=== PATIENT | female | born 1935 | race Caucasian/White ===

== ENCOUNTER 2017-01-17 13:28 | Inpatient (IN) | payer MEDICARE, BC ==
[2017-01-17] VITALS (9 sets, daily range): BP systolic 95–146; BP diastolic 51–79; PULSE 80–104; RESP 18–24; TEMP 97.7; O2SAT 95–99
[~2017-01-17] VITALS: Ht 162.6 cm; Wt 50.0 kg
[~2017-01-17 13:28] MED LIST: CARV6.252 PO; CHOL100025 CHEW; CHOL4POW3 PO; CLON.2T TD; HYDR-3516 PO; HYDR12.57 PO; LISI-515 PO; MAGN64 PO; QUET1TAB7 PO; VENL75XR PO; VITA500C9 CHEW
[2017-01-17] MEDS ORDERED: SODIUM CHLOR 0.9% 1000 ML INJ 100 ML IV ONE (13:38)
[2017-01-17] MEDS ORDERED: SODIUM CHLOR 0.9% 1000 ML INJ 1,000 ML IV ONE ×2 (13:38)
--- NOTE | 2017-01-17 14:27 | PD ---
HPI Chief Complaint: Altered Mental Status Time Seen by Provider: 13:38 Travel History International Travel<30 days: No Contact w/Intl Traveler<30days: No Traveled to known affect area: No History of Present Illness HPI 81-year-old female came to the emergency room brought by EMS from her [facility]. Patient was last seen normal by family members was last Wednesday. As per the EMS staff has been progressively getting more and more confused and deteriorating and today called EMS. When they arrived and checked her blood pressure was 70 systolic. Patient fell last September and had a cervical spine fracture. She also fell couple days ago. But since that fall she did not want to go to the emergency room. They noticed that she was not moving her left upper extremity and was weak in her left lower extremity. Her speech seemed garbled and difficult for me to understand. She did tell me her name. She has a [place] collar on her neck. Patient is a DNR. EMS brought a 12-lead EKG by them which showed left bundle branch block. PFSH Past Medical History Narrative Medical List of her past medical, surgical, social and family history was reviewed from the nursing note. Hx Anticoagulant Therapy: No Alzheimer's Disease: Yes (PER DAUGHTER; PT DENIES) Bipolar Disorder: Yes Anxiety: Yes Cardiovascular Problems: Yes Cerebrovascular Accident: Yes (TIA) Coronary Artery Disease: Yes Diabetes: No Diminished Hearing: No Genitourinary: No Hypertension: Yes Musculoskeletal: No Neurologic: Yes Psychiatric: Yes Reproductive: No Respiratory: No Menopausal: Yes : 3 Para: 3 Past Surgical History Abdominal Surgery: Yes ( FEEDING TUBE IN 10/2014, OUT 11/2014) Appendectomy: Yes Hysterectomy: Yes Social History Alcohol Use: No Tobacco Use: No Substance Use: No Allergies-Medications (Allergen,Severity, Reaction): Coded Allergies: No Known Allergies (Unverified , 01/17/17) Comments No known drug allergies. Reported Meds & Prescriptions Reported Meds & Active Scripts Active Effexor XR 24 HR (Venlafaxine HCl) 75 Mg Cap 75 Mg PO DAILY 30 Days Quetiapine (Quetiapine Fumarate) 25 Mg Tab 25 Mg PO BID 30 Days Hydrocodone-Acetaminophen 5-325 mg Tab 1 Tab PO Q4H PRN [id number] 168 HR Patch (Clonidine) 0.2 Mg/24 Hr Patch 1 Patch TD Q7D 30 Days Reported Lorazepam 0.5 Mg Tab 0.5 Mg PO BID PRN Cholestyramine 4 Gm/Dose Powd 4 Gm PO TID 1 level scoopful of powder contains 4 grams of cholestyramine. Vitamin D3 (Cholecalciferol) 1,000 Unit Chew 1,500 Units CHEW WEEKLY Carvedilol 6.25 Mg Tab 6.25 Mg PO BID Hydrochlorothiazide 12.5 Mg Cap 12.5 Mg PO DAILY Lisinopril 20 Mg Tab 10 Mg PO DAILY Vitamin C (Ascorbic Acid) 500 Mg Chew 500 Mg CHEW DAILY Narrative Medication List of her home medications reviewed from the nursing note. Review of Systems Except as stated in HPI: all other systems reviewed are Neg Physical Exam Narrative GENERAL: Elderly, frail, moderate distress, [place] collar, altered mental status, failure to thrive SKIN: Focused skin assessment warm/dry. HEAD: Atraumatic. Normocephalic. EYES: Pupils equal and round. No scleral icterus. No injection or drainage. ENT: No nasal bleeding or discharge. Mucous membranes pink and moist. NECK: Trachea midline. No JVD. CARDIOVASCULAR: Regular rate and rhythm. No murmur appreciated. RESPIRATORY: No accessory muscle use. Clear to auscultation. Breath sounds equal bilaterally. GASTROINTESTINAL: Abdomen soft, non-tender, nondistended. Hepatic and splenic margins not palpable. MUSCULOSKELETAL: No obvious deformities. No clubbing. No cyanosis. No edema. NEUROLOGICAL: Confused, garbled speech. No obvious cranial nerve deficits. 0 out of 5 motor strength of the left upper extremity, 2 out of 5 motor strength of the left lower extremity PSYCHIATRIC: Appropriate mood and affect; insight and judgment normal. Data Data Last Documented VS Vital Signs Date Time Temp Pulse Resp B/P Pulse Ox O2 Delivery O2 Flow Rate FiO2 01/17/17 15:30 86 22 115/61 96 Nasal Cannula 2 Orders Complete Blood Count With Diff (01/17/17 13:38) Comprehensive Metabolic Panel (01/17/17 13:38) Lactic Acid Sepsis Protocol (01/17/17 13:38) Urinalysis - C+S If Indicated (01/17/17 13:38) Blood Culture (01/17/17 13:38) Chest, Single Ap (01/17/17 13:38) Blood Glucose (01/17/17 13:38) Ecg Monitoring (01/17/17 13:38) Iv Access Insert/Monitor (01/17/17 13:38) Oximetry (01/17/17 13:38) Oxygen Administration (01/17/17 13:38) Sodium Chlor 0.9% 1000 Ml Inj (Ns 1000 M (01/17/17 13:38) Sodium Chlor 0.9% 1000 Ml Inj (Ns 1000 M (01/17/17 13:38) Sodium Chlor 0.9% 1000 Ml Inj (Ns 1000 M (01/17/17 13:38) Urinary Catheter Insert/Apply (01/17/17 13:38) Ct Brain W/O Iv Contrast(Rout) (01/17/17 ) Ct Cerv Spine W/O Contrast (01/17/17 ) Potassium Chlor 20 Meq Premix (Kcl 20 Me (01/17/17 15:30) Urine Culture (01/17/17 14:30) Ceftriaxone Inj (Rocephin Inj) (01/17/17 16:00) Admit Order (Ed Use Only) (01/17/17 15:48) Labs Laboratory Tests Test 01/17/17 01/17/17 01/17/17 14:05 14:07 14:30 Sodium Level 125 MEQ/L Potassium Level 2.7 MEQ/L Chloride Level 85 MEQ/L Carbon Dioxide Level 25.1 MEQ/L Anion Gap 15 MEQ/L Blood Urea Nitrogen 54 MG/DL Creatinine 2.52 MG/DL Estimat Glomerular Filtration 18 ML/MIN Rate Random Glucose 93 MG/DL Calcium Level 8.3 MG/DL Total Bilirubin 0.7 MG/DL Aspartate Amino Transf 53 U/L (AST/SGOT) Alanine Aminotransferase 33 U/L (ALT/SGPT) Alkaline Phosphatase 94 U/L Total Protein 6.5 GM/DL Albumin 3.2 GM/DL White Blood Count 14.9 TH/MM3 Red Blood Count 3.72 MIL/MM3 Hemoglobin 11.6 GM/DL Hematocrit 32.6 % Mean Corpuscular Volume 87.8 FL Mean Corpuscular Hemoglobin 31.3 PG Mean Corpuscular Hemoglobin 35.7 % Concent Red Cell Distribution Width 13.3 % Platelet Count 173 TH/MM3 Mean Platelet Volume 9.5 FL Neutrophils (%) (Auto) 83.5 % Lymphocytes (%) (Auto) 8.0 % Monocytes (%) (Auto) 8.3 % Eosinophils (%) (Auto) 0.1 % Basophils (%) (Auto) 0.1 % Neutrophils # (Auto) 12.5 TH/MM3 Lymphocytes # (Auto) 1.2 TH/MM3 Monocytes # (Auto) 1.2 TH/MM3 Eosinophils # (Auto) 0.0 TH/MM3 Basophils # (Auto) 0.0 TH/MM3 CBC Comment DIFF FINAL Differential Comment Lactic Acid Level 1.1 mmol/L Urine Color YELLOW Urine Turbidity HAZY Urine pH 5.5 Urine Specific [place] 1.013 Urine Protein 30 mg/dL Urine Glucose (UA) NEG mg/dL Urine Ketones NEG mg/dL Urine Occult Blood TRACE Urine Nitrite NEG Urine Bilirubin NEG Urine Urobilinogen LESS THAN 2.0 MG/DL Urine Leukocyte Esterase SMALL Urine RBC 4 /hpf Urine WBC 4 /hpf Urine WBC Clumps RARE Urine Squamous Epithelial <1 /hpf Cells Urine Bacteria RARE /hpf Urine Hyaline Casts 35 /lpf Urine Granular Casts 1 /lpf Urine White Blood Cell Casts 5 /lpf Urine Mucus FEW /lpf Microscopic Urinalysis Comment CATH-CULTURE IND MDM Medical Decision Making Medical Screen Exam Complete: Yes Emergency Medical Condition: Yes Medical Record Reviewed: Yes Interpretation(s) Twelve-lead EKG was reviewed by me. Atrial fibrillation, left bundle branch block, left axis deviation. Heart rate of 96 bpm. Differential Diagnosis CVA, intracranial bleed, intracranial tumor Narrative Course 2:26 PM awaiting for the blood test results to come back. I was told by the nurse that they had to get a manual blood pressure and it was 50 systolic. Patient is getting IV fluid bolus. Waiting for CT scans to be done and resulted. I've asked the nurse to call her veterans contact representative from the family/ friend so that they can be made aware of her poor condition. Currently her condition is very guarded. I looked at her old EKG from September 2016 and the left bundle branch block was then as well. 4:16 p.m. blood test results are back and chemistry is significantly abnormal for dehydration. She is getting replacement for potassium and second liter IV fluid bolus. Patient is currently asleep and vital signs have improved. Her daughter was in the room and I discussed her condition with the daughter. I answered all her questions to the best of my ability. Daughter has given more elaborate history and says that she is slowly declining over the past 4-5 days. She went from walking with a walker to be walking and then bedridden as of yesterday. Today she found her almost unconscious when she called 911. Daughter was told about the plan and I let her know about patient's guarded condition. Patient has been admitted to the hospitalist. I discussed about her DNR status with the daughter and she said that her mother strongly expressed her wishes to be DNR when she was with it and she would like to respect that. Critical Care Narrative Aggregate critical care time was 60 minutes. Time to perform other separately billable procedures was not included in the critical care time. My time did not include minutes spent treating any other patients simultaneously or on activities that did not directly contribute to the patient's treatment. The services I provided to this patient were to treat and/or prevent clinically significant deterioration that could result in: Sepsis, dehydration, altered mental status I provided critical care services requiring my management, as noted below: Chart data review, documentation time, medication orders and management, vital sign assessments/reviewing monitor data, ordering and reviewing lab tests, ordering and interpreting/reviewing x-rays and diagnostic studies, care of the patient and discussion of the patient with the admitting physicians. Procedures EKG Prior to Arrival: Yes Diagnosis Primary Impression: Sepsis Qualified Code: A41.9 - Sepsis, due to unspecified organism Additional Impressions: Dehydration Altered mental status Qualified Code: R40.1 - Stupor Renal insufficiency Hypokalemia Admitting Information Admitting Physician Requests: Admit Angel Martin MD Jan 17, 2017 14:27 Angel Martin MD Jan 17, 2017 14:27
--- NOTE | 2017-01-17 14:31 | RADRPT ---
EXAM DATE/TIME: 01/17/2017 13:40 [facility] COMPARISON: No previous studies available for comparison. INDICATIONS : Shortness of breath. MEDICAL HISTORY : None. SURGICAL HISTORY : None. ENCOUNTER: Initial ACUITY: 1 day PAIN SCORE: 3/10 LOCATION: Bilateral chest FINDINGS: A single view of the chest demonstrates the lungs to be symmetrically hyperinflated without evidence of mass, infiltrate or effusion. The cardiomediastinal contours are unremarkable. Osseous structure s are intact. CONCLUSION: Emphysematous changes of the lungs. No acute abnormality seen. Mayda Russell MD on January 17, 2017 at 14:29 Board Certified Radiologist. This report was verified electronically.
[2017-01-17 14:39] LABS: AUTOMATED NEUTROPHIL # 12.5 TH/MM3 (1.8-7.7); BASOPHIL % 0.1 % (0.0-2.0); EOSINOPHIL % 0.1 % (0.0-4.0); HEMATOCRIT 32.6 % (35.0-46.0); HEMO FLAGS DIFF FINAL; LYMPHOCYTE # 1.2 TH/MM3 (1.0-4.8); MEAN CELL VOLUME 87.8 FL (80.0-100.0); MEAN CORPUSCULAR HEMOGLOBIN 31.3 PG (27.0-34.0); MEAN CORPUSCULAR HGB CONC 35.7 % (32.0-36.0); MONO % 8.3 % (0.0-8.0); NEUT % 83.5 % (16.0-70.0); PLATELET COUNT 173 TH/MM3 (150-450); RED BLOOD COUNT 3.72 MIL/MM3 (4.00-5.30); RED CELL DISTRIBUTION WIDTH 13.3 % (11.6-17.2); WHITE BLOOD COUNT 14.9 TH/MM3 (4.0-11.0)
[2017-01-17] MEDS ORDERED: LORA-373 PO (14:50)
[2017-01-17 15:19] LABS: ALKALINE PHOSPHATASE 94 U/L (45-117); ALT (GPT) 33 U/L (10-53); ANION GAP 15 MEQ/L (5-15); AST (GOT) 53 U/L (15-37); BICARBONATE 25.1 MEQ/L (21.0-32.0); BLOOD UREA NITROGEN 54 MG/DL (7-18); CHLORIDE 85 MEQ/L (98-107); GLOMERULAR FILTRATION RATE 18 ML/MIN (>89); SODIUM (NA) 125 MEQ/L (136-145); TOTAL BILIRUBIN ADULT 0.7 MG/DL (0.2-1.0)
[2017-01-17 15:21] LABS: POTASSIUM 2.7 MEQ/L (3.5-5.1)
[2017-01-17] MEDS ORDERED: POTASSIUM CHLOR 20 MEQ PREMIX 100 ML IV ONE (15:30)
--- NOTE | 2017-01-17 15:31 | RADRPT ---
EXAM DATE/TIME: 01/17/2017 14:48 [facility] COMPARISON: CT BRAIN W/O CONTRAST, September 18, 2016, 22:53. INDICATIONS : Trauma; fall. RADIATION DOSE: 33.51 CTDIvol (mGy) MEDICAL HISTORY : Cardiovascular disease. Alzheimer's. SURGICAL HISTORY : None. ENCOUNTER: Initial ACUITY: 1 day PAIN SCALE: 8/10 LOCATION: cranial TECHNIQUE: Multiple contiguous axial images were obtained of the head. Using automated exposure control and adj ustment of the mA and/or kV according to patient size, radiation dose was kept as low as reasonably a chievable to obtain optimal diagnostic quality images. FINDINGS: CEREBRUM: The ventricles are normal for age. No evidence of midline shift, mass lesion, hemorrhage or acute in farction. No extra-axial fluid collections are seen. POSTERIOR FOSSA: The cerebellum and brainstem are intact. The 4th ventricle is midline. The cerebellopontine angle i s unremarkable. EXTRACRANIAL: The visualized portion of the orbits is intact. SKULL: The calvaria is intact. No evidence of skull fracture. CONCLUSION: 1. No acute findings. Chronic white matter ischemic changes. Paul Thompson MD on January 17, 2017 at 15:29 Board Certified Radiologist. This report was verified electronically.
--- NOTE | 2017-01-17 15:36 | RADRPT ---
EXAM DATE/TIME: 01/17/2017 14:48 [facility] COMPARISON: No previous studies available for comparison. INDICATIONS : Trauma; fall, history of cervical fracture. RADIATION DOSE: 10.73 CTDIvol (mGy) MEDICAL HISTORY : Cardiovascular disease. Stroke Alzheimers. SURGICAL HISTORY : None. ENCOUNTER: Initial ACUITY: 1 day PAIN SCALE: 6/10 LOCATION: Bilateral neck TECHNIQUE: Volumetric scanning of the cervical spine was performed. Multiplanar reconstructions in the sagittal, coronal and oblique axial planes were performed. Using automated exposure control and adjustment o f the mA and/or kV according to patient size, radiation dose was kept as low as reasonably achievable to obtain optimal diagnostic quality images. FINDINGS: Again seen is a chronic fracture through the dens with mild displacement. There is no change in appea lynnette on CT exam since September 2016. No canal stenosis. There is moderate degenerative disc disease and facet arthropathy remainder the cervical spine. There is minimal degenerative anterolisthesis of C4 on C5 which is stable. No significant prevertebral soft tissue swelling. CONCLUSION: 1. Chronic C2 fracture through dens without change in alignment or appearance compared with September 2016. No canal stenosis. Stable minimal degenerative anterolisthesis of C4 on C5. Stable facet arthro cory. Paul Thompson MD on January 17, 2017 at 15:30 Board Certified Radiologist. This report was verified electronically.
[2017-01-17 15:41] LABS: BACTERIA, URINE RARE /hpf; BLOOD, URINE TRACE (NEG); GLUCOSE,URINE NEG (NEG); GRANULAR CAST, URINE 1 /lpf; HYALINE CAST, URINE 35 /lpf (RARE); KETONE, URINE NEG (NEG); MUCUS URINE FEW /lpf (OCC); NITRITE,URINE NEG (NEG); PH, URINE 5.5 (5.0-8.5); SQUAMOUS EPITHELIAL CELL URINE <1 /hpf (0-5); URINE COLOR YELLOW (YELLW/STRAW); WHITE BLOOD CELL CAST, URINE 5 /lpf
[2017-01-17 15:42] LABS: COMMENT (UR) CATH-CULTURE IND; CULTURE IF INDICATED CATH CULTURE IND
[2017-01-17] MEDS ORDERED: cefTRIAXone INJ 1,000 MG in SODIUM CHLORIDE 0.9% INJ 100 ML IV ONE (16:00)
[2017-01-17] MEDS ORDERED: ONDANSETRON HCL 4 MG/2 ML VIAL IVP PRN (16:45)
[2017-01-17] MEDS ORDERED: SODIUM CHLORIDE 0.9% FLUSH 10 ML FLUSH IV FLUSH PRN (16:45)
[2017-01-17] MEDS ORDERED: ACETAMINOPHEN 325 MG TAB PO PRN (16:45)
[2017-01-17] MEDS ORDERED: cefTRIAXone INJ 1,000 MG in SODIUM CHLORIDE 0.9% INJ 100 ML IV SCH (17:00)
--- NOTE | 2017-01-17 17:11 | HHI.HP ---
HPI Service [facility] Hospitalists Primary Care Physician Non-Staff Admission Diagnosis sepsis, UTI Diagnoses: Chief Complaint: AMS Travel History International Travel<30 Days: No Contact w/Intl Traveler <30 Da: No Traveled to Known Affected Are: No Sepsis Criteria SIRS Criteria (2 or more): Heart rate over 90, WBC > 18101, < 4000 or > 10% bands Sepsis Criteria (SIRS+source): Infect source susp/known History of Present Illness This is an 81-year-old female with past medical history as stated below who presented to [facility] brought in by EMS services. The patient is lethargic and unable to provide history at this time. The patient's daughter is at bedside. She states that the patient started the week approximately 3 days ago. Today when she went to see her she was very weak and sleepy. That is when she decided to call EMS services. The patient has been seen in emergency department, she with IV fluids. As per ED physician report the patient was profoundly hypotensive with systolic blood pressure in the 60s. IV fluid was administered with improvement of blood pressure. There are no reports of fevers or chills, occasional cough, as per the patient's daughter, the patient had been complaining of palpitations, nausea and dry heaving. There are no reports of diarrhea. Review of Systems As per history of present illness, other systems reviewed by me and negative Past Family Social History Past Medical History 1. Hypertension. 2. Scoliosis and anxiety. 3. Chronic back pain. 4. Chronic atrial fibrillation 5. Anorexia nervosa Past Surgical History 1. Cataract surgery of the right eye. 2. Feeding tube into thousand 14. 3. Tonsillectomy. 4. Hysterectomy. 5. Cervical fracture status post fall 6. Encephalopathy. 7. UTI. 8. Depression. Reported Medications Effexor XR 24 HR (Venlafaxine HCl) 75 Mg Cap 75 Mg PO DAILY 30 Days Quetiapine (Quetiapine Fumarate) 25 Mg Tab 25 Mg PO BID 30 Days Hydrocodone-Acetaminophen 5-325 mg Tab 1 Tab PO Q4H PRN [id number] 168 HR Patch (Clonidine) 0.2 Mg/24 Hr Patch 1 Patch TD Q7D 30 Days Lorazepam 0.5 Mg Tab 0.5 Mg PO BID PRN Cholestyramine 4 Gm/Dose Powd 4 Gm PO TID 1 level scoopful of powder contains 4 grams of cholestyramine. Vitamin D3 (Cholecalciferol) 1,000 Unit Chew 1,500 Units CHEW WEEKLY Carvedilol 6.25 Mg Tab 6.25 Mg PO BID Hydrochlorothiazide 12.5 Mg Cap 12.5 Mg PO DAILY Lisinopril 20 Mg Tab 10 Mg PO DAILY Vitamin C (Ascorbic Acid) 500 Mg Chew 500 Mg CHEW DAILY Allergies: Coded Allergies: No Known Allergies (Unverified , 09/17/16) Active Ordered Medications Current Medications Medications (Trade) Dose Ordered Sig/Ally Route Start Time Stop Time Status Last Admin (KCl 20 Meq Premix Inj) 100 ml @ 50 mls/hr ONCE ONCE IV 01/17/17 15:30 01/17/17 17:29 Family History Patient's mother and brother of heart disease. Social History The patient is a former smoker, she quit smoking several years ago. Denies alcohol intake. The patient lives in an assisted living facility. Physical Exam Vital Signs Vital Signs Date Time Temp Pulse Resp B/P Pulse Ox O2 Delivery O2 Flow Rate FiO2 01/17/17 14:34 83 22 95/51 96 Nasal Cannula 2 01/17/17 14:25 104 24 146/63 96 Nasal Cannula 2 01/17/17 14:09 96 24 142/73 95 Room Air 01/17/17 13:45 100 Physical Exam GENERAL: This is a well-nourished, well-developed patient, in no apparent distress. SKIN: No rashes, ecchymoses or lesions. Cool and dry. There is a skin tear in the left lower extremity covered by dressing which is C/D/I HEAD: Atraumatic. Normocephalic. No temporal or scalp tenderness. EYES: Pupils equal round and reactive. Extraocular motions intact. No scleral icterus. No injection or drainage. ENT: Nose without bleeding, purulent drainage or septal hematoma. Throat without erythema, tonsillar hypertrophy or exudate. Uvula midline. Airway patent. [place] collar in place. NECK: Trachea midline. No JVD or lymphadenopathy. Supple, nontender, no meningeal signs. CARDIOVASCULAR: Irregularly irregular rhythm without murmurs, gallops, or rubs. RESPIRATORY: Clear to auscultation. Breath sounds equal bilaterally. No wheezes , rales, or rhonchi. GASTROINTESTINAL: Abdomen soft, non-tender, nondistended. No hepato-splenomegaly , or palpable masses. No guarding. MUSCULOSKELETAL: Extremities without clubbing, cyanosis, or edema. No joint tenderness, effusion, or edema noted. No calf tenderness. Negative Homans sign bilaterally. NEUROLOGICAL: Awake and alert. Cranial nerves II through XII intact. Motor and sensory grossly within normal limits. Five out of 5 muscle strength in all muscle groups. Normal speech. Laboratory Laboratory Tests Test 01/17/17 01/17/17 01/17/17 14:05 14:07 14:30 White Blood Count 14.9 Red Blood Count 3.72 Hemoglobin 11.6 Hematocrit 32.6 Mean Corpuscular Volume 87.8 Mean Corpuscular Hemoglobin 31.3 Mean Corpuscular Hemoglobin 35.7 Concent Red Cell Distribution Width 13.3 Platelet Count 173 Mean Platelet Volume 9.5 Neutrophils (%) (Auto) 83.5 Lymphocytes (%) (Auto) 8.0 Monocytes (%) (Auto) 8.3 Eosinophils (%) (Auto) 0.1 Basophils (%) (Auto) 0.1 Neutrophils # (Auto) 12.5 Lymphocytes # (Auto) 1.2 Monocytes # (Auto) 1.2 Eosinophils # (Auto) 0.0 Basophils # (Auto) 0.0 CBC Comment DIFF FINAL Differential Comment Sodium Level 125 Potassium Level 2.7 Chloride Level 85 Carbon Dioxide Level 25.1 Anion Gap 15 Blood Urea Nitrogen 54 Creatinine 2.52 Estimat Glomerular Filtration 18 Rate Random Glucose 93 Calcium Level 8.3 Total Bilirubin 0.7 Aspartate Amino Transf 53 (AST/SGOT) Alanine Aminotransferase 33 (ALT/SGPT) Alkaline Phosphatase 94 Total Protein 6.5 Albumin 3.2 Lactic Acid Level 1.1 Urine Color YELLOW Urine Turbidity HAZY Urine pH 5.5 Urine Specific [place] 1.013 Urine Protein 30 Urine Glucose (UA) NEG Urine Ketones NEG Urine Occult Blood TRACE Urine Nitrite NEG Urine Bilirubin NEG Urine Urobilinogen LESS THAN 2.0 Urine Leukocyte Esterase SMALL Urine RBC 4 Urine WBC 4 Urine WBC Clumps RARE Urine Squamous Epithelial <1 Cells Urine Bacteria RARE Urine Hyaline Casts 35 Urine Granular Casts 1 Urine White Blood Cell Casts 5 Urine Mucus FEW Microscopic Urinalysis Comment CATH-CULTURE IND Date/Time Procedure Status Source Growth 01/17/17 14:30 Urine Culture Received Urine Catheterized Urine Pending 01/17/17 14:05 Aerobic Blood Culture Received Blood Peripheral Pending 01/17/17 14:05 Anaerobic Blood Culture Received Blood Peripheral Pending Result Diagram: 01/17/17 1405 01/17/17 1405 Imaging Last Impressions Chest X-Ray 01/17/17 1338 Signed Impressions: Service Date/Time: Tuesday, January 17, 2017 13:40 - CONCLUSION: Emphysematous changes of the lungs. No acute abnormality seen. Mayda Russell MD Head CT 01/17/17 0000 Signed Impressions: Service Date/Time: Tuesday, January 17, 2017 14:48 - CONCLUSION: 1. No acute findings. Chronic white matter ischemic changes. Paul Thompson MD Cervical Spine CT 01/17/17 0000 Signed Impressions: Service Date/Time: Tuesday, January 17, 2017 14:48 - CONCLUSION: 1. Chronic C2 fracture through dens without change in alignment or appearance compared with September 2016. No canal stenosis. Stable minimal degenerative anterolisthesis of C4 on C5. Stable facet arthropathy. Paul Thompson MD All images reviewed by me. EKG reviewed by me shows atrial fibrillation at a ventricular rate of [address] changes suggestive of active ischemia. Septic Shock Reassessment Heart: Irregular Lungs: Clear Skin: Warm Peripheral Pulses: Weak Right Radial Weak Left Radial Weak Right Dorsalis Pedis Weak Left Dorsalis Pedis Capillary Refill: <2 seconds Assessment and Plan Problem List: (1) Sepsis ICD Code: A41.9 Status: Acute Plan: Sepsis likely secondary to urinary tract infection. Chest x-ray does not show any infiltrates. UA positive, follow-up urine and blood cultures obtained in the emergency department. Present on admission with heart rate in the 100s, leukocytosis, hypotension. Admit to general medical floor with telemetry, continue IV fluids, continue to monitor vital signs (2) Encephalopathy ICD Code: G93.40 Status: Acute Plan: Due to sepsis likely due to UTI. Patient lethargic when she left the hospital. Waking up up in the event of this interview. (3) UTI (urinary tract infection) ICD Code: N39.0 Status: Acute Plan: Follow-up urine cultures. Continue IV Rocephin started in the emergency department. Continue Arriola catheter. (4) HTN (hypertension) ICD Code: I10 Status: Acute Plan: Hold home antihypertensive medications due to hypotension. (5) Hyponatremia ICD Code: E87.1 Status: Acute Plan: Likely hypovolemic hyponatremia from dehydration and decreased oral intake. Monitor BMP every 6 hours. Sodium should not be based more than 10 points in the first 24 hours. (6) Hypokalemia ICD Code: E87.6 Status: Acute Plan: Likely secondary to poor oral intake. Replace IV and continue to monitor. (7) C2 cervical fracture ICD Code: S12.100A Status: Acute (8) MELVIN (acute kidney injury) ICD Code: N17.9 Status: Acute Plan: Likely due to prerenal azotemia and due to hemodynamic instability. Continue to monitor BUN/creatinine, strict input and output, avoid nephrotoxic medications. Give IV fluids. (9) Hypotension ICD Code: I95.9 Status: Acute Plan: Secondary to sepsis, secondary to urinary tract infection. Status post 3 L of IV normal saline in the emergency department. Blood pressure improving. Continue to monitor vital signs. Assessment and Plan GI prophylaxis: PPI. DVT prophylaxis: SCDs, Lovenox subcutaneous. Physician Certification 2 Midnight Certification Type: Admission for Inpatient Services Order for Inpatient Services The services are ordered in accordance with Medicare regulations or non- Medicare payer requirements, as applicable. In the case of services not specified as inpatient-only, they are appropriately provided as inpatient services in accordance with the 2-midnight benchmark. Estimated LOS (days): 2 days is the estimated time the patient will need to remain in the hospital, assuming treatment plan goals are met and no additional complications. Post-Hospital Plan: SNF Problem Qualifiers (1) Sepsis: Qualified Code: A41.9 - Sepsis, due to unspecified organism (2) UTI (urinary tract infection): Qualified Code: N30.00 - Acute cystitis without hematuria Rory Ortega MD Jan 17, 2017 17:11
[2017-01-17] MEDS ORDERED: POTASSIUM CHLOR 20 MEQ PREMIX 100 ML IV SCH (18:00)
[2017-01-17] MEDS: SODIUM CHLORIDE 0.9% FLUSH 10 ML FLUSH IV FLUSH SCH (20:46)
[2017-01-17] MEDS: SODIUM CHLOR 0.9% 1000 ML INJ 1,000 ML IV SCH (20:46)
[2017-01-17 22:57] LABS: BICARBONATE 20.9 MEQ/L (21.0-32.0)
[2017-01-18] VITALS (8 sets, daily range): BP systolic 138–171; BP diastolic 63–81; PULSE 74–88; RESP 14–18; TEMP 96.9–97.9; O2SAT 98–100
[2017-01-18] MEDS: SODIUM CHLOR 0.9% 1000 ML INJ 1,000 ML IV SCH (05:37)
[2017-01-18 07:22] LABS: BASOPHIL % 0.1 % (0.0-2.0); EOSINOPHIL % 0.2 % (0.0-4.0); HEMATOCRIT 33.1 % (35.0-46.0); HEMO FLAGS DIFF FINAL; LYMPH % 6.3 % (9.0-44.0); MEAN CELL VOLUME 88.5 FL (80.0-100.0); MEAN CORPUSCULAR HEMOGLOBIN 30.8 PG (27.0-34.0); MEAN CORPUSCULAR HGB CONC 34.8 % (32.0-36.0); MONO % 8.6 % (0.0-8.0); NEUT % 84.8 % (16.0-70.0); PLATELET COUNT 188 TH/MM3 (150-450); RED BLOOD COUNT 3.74 MIL/MM3 (4.00-5.30); RED CELL DISTRIBUTION WIDTH 13.4 % (11.6-17.2); WHITE BLOOD COUNT 16.5 TH/MM3 (4.0-11.0)
[2017-01-18 07:53] LABS: ALKALINE PHOSPHATASE 100 U/L (45-117); ALT (GPT) 38 U/L (10-53); ANION GAP 16 MEQ/L (5-15); AST (GOT) 57 U/L (15-37); BICARBONATE 19.4 MEQ/L (21.0-32.0); BLOOD UREA NITROGEN 46 MG/DL (7-18); CHLORIDE 98 MEQ/L (98-107); GLOMERULAR FILTRATION RATE 40 ML/MIN (>89); SODIUM (NA) 133 MEQ/L (136-145); TOTAL BILIRUBIN ADULT 0.6 MG/DL (0.2-1.0)
[2017-01-18 08:02] LABS: POTASSIUM 2.8 MEQ/L (3.5-5.1)
[2017-01-18] MEDS: POTASSIUM CHLOR 20 MEQ PREMIX 100 ML IV SCH ×2 (08:54→10:12)
[2017-01-18] MEDS: SODIUM CHLORIDE 0.9% FLUSH 10 ML FLUSH IV FLUSH SCH ×2 (08:58→21:29)
[2017-01-18] MEDS ORDERED: VANCOMYCIN INJ 1,000 MG in SODIUM CHLOR 0.9% 250 ML INJ 250 ML IV SCH (10:00)
[2017-01-18] MEDS: NS + KCL 40 MEQ INJ 1,000 ML IV SCH ×2 (10:12→22:53)
--- NOTE | 2017-01-18 10:47 | HHI.PR ---
Subjective Remarks Patient is awake and alert States she feels sore all over. Blood pressure is very elevated States that she feels very anxious Potassium low. wbc trending up Objective Vitals Vital Signs Date Time Temp Pulse Resp B/P Pulse Ox O2 Delivery O2 Flow Rate FiO2 01/18/17 08:20 87 01/18/17 08:00 97.5 79 16 157/73 99 01/18/17 04:00 97.9 88 16 171/81 98 01/18/17 00:00 97.7 88 18 138/63 99 01/17/17 20:13 80 01/17/17 20:00 97.7 95 18 140/58 99 01/17/17 17:30 100 24 106/79 96 Nasal Cannula 2 01/17/17 16:30 88 22 110/64 98 Nasal Cannula 2 01/17/17 15:30 86 22 115/61 96 Nasal Cannula 2 01/17/17 14:34 83 22 95/51 96 Nasal Cannula 2 01/17/17 14:25 104 24 146/63 96 Nasal Cannula 2 01/17/17 14:09 96 24 142/73 95 Room Air 01/17/17 13:45 100 I/O 01/17/17 01/17/17 01/17/17 01/18/17 01/18/17 01/18/17 07:00 15:00 23:00 07:00 15:00 23:00 Intake Total 533 ml 576 ml Output Total 1200 ml Balance -667 ml 576 ml Intake Oral 0 ml IV Total 533 ml 576 ml Output Urine Total 1200 ml # Voids 0 # Bowel Movements 0 Result Diagram: 01/18/17 0647 01/18/17 0647 Imaging Last Impressions Chest X-Ray 01/17/17 1338 Signed Impressions: Service Date/Time: Tuesday, January 17, 2017 13:40 - CONCLUSION: Emphysematous changes of the lungs. No acute abnormality seen. Mayda Russell MD Head CT 01/17/17 0000 Signed Impressions: Service Date/Time: Tuesday, January 17, 2017 14:48 - CONCLUSION: 1. No acute findings. Chronic white matter ischemic changes. Paul Thompson MD Cervical Spine CT 01/17/17 0000 Signed Impressions: Service Date/Time: Tuesday, January 17, 2017 14:48 - CONCLUSION: 1. Chronic C2 fracture through dens without change in alignment or appearance compared with September 2016. No canal stenosis. Stable minimal degenerative anterolisthesis of C4 on C5. Stable facet arthropathy. Paul Thompson MD Objective Remarks GENERAL: This is a well-nourished, well-developed patient, in no apparent distress. SKIN: No rashes, ecchymoses or lesions. Cool and dry. There is a skin tear in the left lower extremity covered by dressing which is C/D/I HEAD: Atraumatic. Normocephalic. No temporal or scalp tenderness. EYES: Pupils equal round and reactive. Extraocular motions intact. No scleral icterus. No injection or drainage. ENT: Nose without bleeding, purulent drainage or septal hematoma. Throat without erythema, tonsillar hypertrophy or exudate. Uvula midline. Airway patent. Mobile collar in place. NECK: Trachea midline. No JVD or lymphadenopathy. Supple, nontender, no meningeal signs. Mobile collar in place CARDIOVASCULAR: Irregularly irregular rhythm without murmurs, gallops, or rubs. RESPIRATORY: Clear to auscultation. Breath sounds equal bilaterally. No wheezes , rales, or rhonchi. GASTROINTESTINAL: Abdomen soft, non-tender, nondistended. No hepato-splenomegaly , or palpable masses. No guarding. MUSCULOSKELETAL: Extremities without clubbing, cyanosis, or edema. No joint tenderness, effusion, or edema noted. No calf tenderness. Negative Homans sign bilaterally. NEUROLOGICAL: Awake and alert. Cranial nerves II through XII intact. Motor and sensory grossly within normal limits. Five out of 5 muscle strength in all muscle groups. Normal speech. Procedures none Medications and IVs Current Medications Medications (Trade) Dose Ordered Sig/Ally Route Start Time Stop Time Status Last Admin (NS Flush) 2 ml UNSCH PRN IV FLUSH 01/17/17 16:45 (NS Flush) 2 ml BID IV FLUSH 01/17/17 21:00 01/17/17 20:46 (Tylenol) 650 mg Q4H PRN PO 01/17/17 16:45 01/18/17 05:38 (Zofran Inj) 4 mg Q6H PRN IVP 01/17/17 16:45 Enoxaparin Sodium 40 mg 40 mg Q24H SQ 01/17/17 18:00 Vancomycin HCl 1000 mg/Sodium Chloride 250 ml @ 250 mls/hr Q24H IV 01/18/17 10:00 Hold 01/18/17 10:12 Piperacillin Sod/ Tazobactam Sod 50 ml @ 100 mls/hr Q6H IV 01/18/17 10:00 01/18/17 11:25 Potassium Chloride/Sodium Chloride 1,000 ml @ 84 mls/hr [id number] IV 01/18/17 10:00 01/18/17 10:12 (Vancomycin Consult Pharmacy) ml @ 0 mls/hr UNSCH OTHER 01/18/17 12:00 (Coreg) 6.25 mg BID PO 01/18/17 14:15 UNV (Catapres-Tts 0.2 Mg Patch.7d) 1 patch Q7D T-DERMAL 01/18/17 14:15 UNV Urinary Catheter: Yes Assessment to: Continue Arriola insert reason: Measure Accurate Output Vascular Central Line Catheter: No A/P Problem List: (1) Sepsis ICD Code: A41.9 Status: Acute Plan: Sepsis likely secondary to urinary tract infection. Chest x-ray does not show any infiltrates. UA positive, urine cultures growing gram-negative rods. Present on admission with heart rate in the 100s, leukocytosis, hypotension. She was admitted to the medical floor on telemetry. Continue IV fluids at a lower rate. WBCs trending up from 14.9-16.5. I will DC Rocephin and protein coverage with IV vancomycin and IV Zosyn. (2) Encephalopathy ICD Code: G93.40 Status: Resolved Plan: Due to sepsis likely due to UTI. Patient lethargic when she to the hospital. Waking up up in the event of this interview. 01/18 encephalopathy resolved. Patient is awake alert oriented 3. (3) UTI (urinary tract infection) ICD Code: N39.0 Status: Acute Plan: Will DC IV Rocephin and switch to IV vancomycin and IV Zosyn. Continue Arriola catheter. (4) HTN (hypertension) ICD Code: I10 Status: Acute Plan: Antihypertensive medications were held on the day of admission. However blood pressure went very elevated and is now controlled with a systolic blood pressure in the 170s. I will resume patient's carvedilol and clonidine patch. Hold FRANDY inhibitor due to poor kidney function. (5) Hyponatremia ICD Code: E87.1 Status: Acute Plan: Patient with severe hyponatremia at 125 upon admission. Likely hypovolemic hyponatremia due to dehydration and poor oral intake. Patient started on normal saline, sodium slowly improving at an adequate rate. Today 133. Continue normal saline and continue to monitor BMP. (6) Hypokalemia ICD Code: E87.6 Status: Acute Plan: Likely secondary to poor oral intake. I will replace IV and continue to monitor. (7) C2 cervical fracture ICD Code: S12.100A Status: Chronic Plan: Continue Mobile collar. Patient family refused surgery in the past. (8) MELVIN (acute kidney injury) ICD Code: N17.9 Status: Acute Plan: Likely due to prerenal azotemia and due to hemodynamic instability. Creatinine on admission 2.5 to, trending down to 1.29. Continue to hold FRANDY inhibitor, continue IV fluids. (9) Hypotension ICD Code: I95.9 Status: Resolved Plan: Secondary to sepsis, secondary to urinary tract infection. Status post 3 L of IV normal saline in the emergency department. Hypotension now resolved. The patient now is hypertensive. (10) Chronic pain ICD Code: G89.29 Status: Chronic Plan: Will resume patient's home percocet. (11) Anxiety ICD Code: F41.9 Status: Acute Plan: resume lorazepam Problem Qualifiers (1) Sepsis: Qualified Code: A41.9 - Sepsis, due to unspecified organism (2) UTI (urinary tract infection): Qualified Code: N30.00 - Acute cystitis without hematuria (3) Chronic pain: Qualified Code: G89.29 - Other chronic pain Rory Ortega MD Jan 18, 2017 10:47
[2017-01-18] MEDS: PIPERACIL-TAZO 3.375 GM PREMIX 50 ML IV SCH ×3 (11:25→22:53)
[2017-01-18] MEDS ORDERED: Vancomycin Consult Pharmacy 1 EA OTHER SCH (12:00)
--- NOTE | 2017-01-18 14:35 | EKG ---
Date Performed: 01/17/2017 Time Performed: 16:13:47 PTAGE: 81 years EKG: ATRIAL FIBRILLATION MARKED LEFT AXIS DEVIATION LEFT BUNDLE BRANCH BLOCK Since the prior tra cing, patient has developed atrial fibrillation. The left bundle branch block was previously noted. A BNORMAL ECG PREVIOUS TRACING : 09/23/2016 19.15 DOCTOR: Kiersten Garcia Interpretating Date/Time 01/18/2017 14:34:17
[2017-01-18] MEDS ORDERED: cloNIDine HCL 0.2 MG/24 HR PATCH T-DERMAL SCH (15:00)
[2017-01-18] MEDS ORDERED: cefTRIAXone INJ 1,000 MG in SODIUM CHLORIDE 0.9% INJ 100 ML IV SCH (16:00)
[2017-01-18] MEDS: CARVEDILOL 6.25 MG TAB PO SCH ×2 (16:06→21:29)
[2017-01-18] MEDS: ENOXAPARIN SODIUM 40 MG/0.4 ML SYRINGE SQ SCH (18:25)
[2017-01-18 21:47] LABS: BICARBONATE 22.3 MEQ/L (21.0-32.0); POTASSIUM 3.8 MEQ/L (3.5-5.1)
[2017-01-19] VITALS: BP 168/79; PULSE 77; RESP 16; TEMP 97.6; O2SAT 99
[2017-01-19] MEDS: LORazepam 0.5 MG TAB PO PRN ×2 (00:30→22:14)
[2017-01-19 04:00] VITALS: BP 182/83; PULSE 80; RESP 18; TEMP 97.1; O2SAT 98
[2017-01-19] MEDS: PIPERACIL-TAZO 3.375 GM PREMIX 50 ML IV SCH ×2 (04:00→09:13)
[2017-01-19 08:00] VITALS: BP 198/97; PULSE 41; RESP 18; TEMP 98; O2SAT 98
[2017-01-19] MEDS: SODIUM CHLORIDE 0.9% FLUSH 10 ML FLUSH IV FLUSH SCH ×2 (09:11→22:10)
[2017-01-19] MEDS: CARVEDILOL 6.25 MG TAB PO SCH ×2 (09:11→22:10)
[2017-01-19] MEDS: NS + KCL 40 MEQ INJ 1,000 ML IV SCH (09:12)
[2017-01-19] MEDS ORDERED: VANCOMYCIN INJ 1,000 MG in SODIUM CHLOR 0.9% 250 ML INJ 250 ML IV SCH (10:00)
[2017-01-19] MEDS: amLODIPine BESYLATE 5 MG TAB PO SCH (11:43)
[2017-01-19] MEDS: cefTRIAXone INJ 1,000 MG in SODIUM CHLORIDE 0.9% INJ 100 ML IV SCH (11:43)
[2017-01-19 12:00] VITALS: BP 201/92; PULSE 94; RESP 20; TEMP 97.3; O2SAT 98
[2017-01-19 13:39] LABS: AUTOMATED NEUTROPHIL # 14.6 TH/MM3 (1.8-7.7); BASOPHIL % 0.1 % (0.0-2.0); EOSINOPHIL % 0.1 % (0.0-4.0); HEMATOCRIT 35.9 % (35.0-46.0); HEMO FLAGS DIFF FINAL; LYMPHOCYTE # 0.2 TH/MM3 (1.0-4.8); MEAN CELL VOLUME 90.9 FL (80.0-100.0); MEAN CORPUSCULAR HEMOGLOBIN 30.3 PG (27.0-34.0); MEAN CORPUSCULAR HGB CONC 33.3 % (32.0-36.0); MONO % 12.7 % (0.0-8.0); NEUT % 86.1 % (16.0-70.0); PLATELET COUNT 213 TH/MM3 (150-450); RED BLOOD COUNT 3.95 MIL/MM3 (4.00-5.30); RED CELL DISTRIBUTION WIDTH 13.7 % (11.6-17.2)
[2017-01-19 14:28] LABS: ALKALINE PHOSPHATASE 106 U/L (45-117); ALT (GPT) 34 U/L (10-53); ANION GAP 14 MEQ/L (5-15); AST (GOT) 42 U/L (15-37); BICARBONATE 18.9 MEQ/L (21.0-32.0); BLOOD UREA NITROGEN 34 MG/DL (7-18); CHLORIDE 104 MEQ/L (98-107); GLOMERULAR FILTRATION RATE 56 ML/MIN (>89); POTASSIUM 4.3 MEQ/L (3.5-5.1); SODIUM (NA) 137 MEQ/L (136-145)
[2017-01-19] MEDS ORDERED: ENALAPRILAT 2.5 MG/2 ML VIAL IV PUSH PRN (15:15)
--- NOTE | 2017-01-19 15:52 | HHI.PR ---
Subjective Remarks Patient still slightly confused but fully awake denies cp/sob Bp very elevated with as SBP of 200 systolic Patient still somewhat confused but fully awake Denies chest pain or short of breath Denies abdominal pain White count is trending up Objective Vitals Vital Signs Date Time Temp Pulse Resp B/P Pulse Ox O2 Delivery O2 Flow Rate FiO2 01/19/17 12:00 97.3 94 20 201/92 98 01/19/17 08:00 98.0 41 18 198/97 98 01/19/17 04:00 97.1 80 18 182/83 98 01/19/17 00:00 97.6 77 16 168/79 99 01/18/17 20:00 97.6 76 14 156/70 99 01/18/17 19:55 76 01/18/17 16:00 97.9 74 16 167/69 100 I/O 01/18/17 01/18/17 01/18/17 01/19/17 01/19/17 01/19/17 07:00 15:00 23:00 07:00 15:00 23:00 Intake Total 576 ml 0 ml 774 ml 647 ml Output Total 1000 ml 600 ml 550 ml Balance 576 ml -1000 ml 174 ml 97 ml Intake Oral 0 ml IV Total 576 ml 774 ml 647 ml Output Urine Total 1000 ml 600 ml 550 ml # Bowel Movements 0 0 Result Diagram: 01/19/17 1327 01/19/17 1327 Imaging Last Impressions Chest X-Ray 01/17/17 1338 Signed Impressions: Service Date/Time: Tuesday, January 17, 2017 13:40 - CONCLUSION: Emphysematous changes of the lungs. No acute abnormality seen. Mayda Russell MD Head CT 01/17/17 0000 Signed Impressions: Service Date/Time: Tuesday, January 17, 2017 14:48 - CONCLUSION: 1. No acute findings. Chronic white matter ischemic changes. Paul Thompson MD Cervical Spine CT 01/17/17 0000 Signed Impressions: Service Date/Time: Tuesday, January 17, 2017 14:48 - CONCLUSION: 1. Chronic C2 fracture through dens without change in alignment or appearance compared with September 2016. No canal stenosis. Stable minimal degenerative anterolisthesis of C4 on C5. Stable facet arthropathy. Paul Thompson MD Objective Remarks GENERAL: This is a well-nourished, well-developed patient, in no apparent distress. SKIN: No rashes, ecchymoses or lesions. Cool and dry. There is a skin tear in the left lower extremity covered by dressing which is C/D/I HEAD: Atraumatic. Normocephalic. No temporal or scalp tenderness. EYES: Pupils equal round and reactive. Extraocular motions intact. No scleral icterus. No injection or drainage. ENT: Nose without bleeding, purulent drainage or septal hematoma. Throat without erythema, tonsillar hypertrophy or exudate. Uvula midline. Airway patent. [place] collar in place. NECK: Trachea midline. No JVD or lymphadenopathy. Supple, nontender, no meningeal signs. [place] collar in place CARDIOVASCULAR: Irregularly irregular rhythm without murmurs, gallops, or rubs. RESPIRATORY: Clear to auscultation. Breath sounds equal bilaterally. No wheezes , rales, or rhonchi. GASTROINTESTINAL: Abdomen soft, non-tender, nondistended. No hepato-splenomegaly , or palpable masses. No guarding. MUSCULOSKELETAL: Extremities without clubbing, cyanosis, or edema. No joint tenderness, effusion, or edema noted. No calf tenderness. Negative Homans sign bilaterally. NEUROLOGICAL: Awake and alert. Cranial nerves II through XII intact. Motor and sensory grossly within normal limits. Five out of 5 muscle strength in all muscle groups. Normal speech. Procedures none Medications and IVs Current Medications Medications (Trade) Dose Ordered Sig/Ally Route Start Time Stop Time Status Last Admin (NS Flush) 2 ml UNSCH PRN IV FLUSH 01/17/17 16:45 (NS Flush) 2 ml BID IV FLUSH 01/17/17 21:00 01/19/17 09:11 (Tylenol) 650 mg Q4H PRN PO 01/17/17 16:45 01/18/17 05:38 (Zofran Inj) 4 mg Q6H PRN IVP 01/17/17 16:45 (Lovenox Inj) 40 mg Q24H SQ 01/17/17 18:00 01/18/17 18:25 (Coreg) 6.25 mg BID PO 01/18/17 14:15 01/19/17 09:11 (Catapres-Tts 0.2 Mg Patch.7d) 1 patch Q7D T-DERMAL 01/18/17 15:00 01/18/17 16:06 Miscellaneous Information 1 Q7D T-DERMAL 01/25/17 15:00 ([place] 5-325 Mg) 1 tab Q4H PRN PO 01/18/17 14:30 (Ativan) 0.5 mg BID PRN PO 01/18/17 14:30 01/19/17 00:30 Amlodipine Besylate 5 mg 5 mg DAILY PO 01/19/17 10:00 01/19/17 11:43 (Rocephin Inj/NS Inj) 100 ml @ 200 mls/hr Q24H IV 01/19/17 11:00 01/19/17 11:43 (Vasotec Inj) 2.5 mg Q6H PRN IV PUSH 01/19/17 15:15 (Cardura) 2 mg HS PO 01/19/17 21:00 Urinary Catheter: No Vascular Central Line Catheter: No A/P Problem List: (1) Sepsis ICD Code: A41.9 Status: Acute (2) Encephalopathy ICD Code: G93.40 Status: Resolved (3) UTI (urinary tract infection) ICD Code: N39.0 Status: Acute (4) HTN (hypertension) ICD Code: I10 Status: Acute (5) Hyponatremia ICD Code: E87.1 Status: Acute (6) Hypokalemia ICD Code: E87.6 Status: Acute (7) C2 cervical fracture ICD Code: S12.100A Status: Chronic (8) MELVIN (acute kidney injury) ICD Code: N17.9 Status: Acute (9) Hypotension ICD Code: I95.9 Status: Resolved (10) Chronic pain ICD Code: G89.29 Status: Chronic (11) Anxiety ICD Code: F41.9 Status: Acute Assessment and Plan (1) Sepsis Plan: Sepsis likely secondary to urinary tract infection. Chest x-ray does not show any infiltrates. Present on admission with heart rate in the 100s, leukocytosis, hypotension. She was admitted to the medical floor on telemetry. Continue IV fluids at a lower rate. WBCs trending up from 14.9-16.5 - 17. Blood cultures negative x2. 4/10 DC IV Vancomycin and IV Zosyn, resume Rocephin. Continue to monitor cbcb w diff. (2) Encephalopathy Plan: Due to sepsis likely due to UTI. Patient lethargic when she to the hospital. Waking up up in the event of this interview. Encephalopathy resolved. (3) UTI (urinary tract infection) On IV antibiotics as mentioned above. (4) HTN (hypertension) Plan: Antihypertensive medications were held on the day of admission. However blood pressure went very elevated and is now controlled with a systolic blood pressure in the 170s. I will resume patient's carvedilol and clonidine patch. Hold FRANDY inhibitor due to poor kidney function. 01/19 Patient very hypertensive with SBP in the 200's. Resume home Lisinoprill and HCTZ. Will add cardura 2 mg at bedtime if bp not improved. Will give Enalapril IV as needed for SBP > 160. (5) Hyponatremia Plan: Patient with severe hyponatremia at 125 upon admission. Likely hypovolemic hyponatremia due to dehydration and poor oral intake. Resolved after IV normal saline administration. Continue to monitor BMP. (6) Hypokalemia Plan: Likely secondary to poor oral intake. Replaced and within normal range today. continue to monitor BMP. (7) C2 cervical fracture Plan: Continue [place] collar. Patient family refused surgery in the past. (8) MELVIN (acute kidney injury) Plan: Likely due to prerenal azotemia and due to hemodynamic instability. Creatinine on admission 2.5 to, trending down to 1.29. Continue to hold FRANDY inhibitor, continue IV fluids. (9) Hypotension Plan: Secondary to sepsis, secondary to urinary tract infection. Status post 3 L of IV normal saline in the emergency department. Hypotension now resolved. The patient now is hypertensive. (10) Chronic pain Plan: Continue Percocet. Pain seems to be controlled. (11) Anxiety Plan: Seems stable. continue home Lorazepam. Nurse communicated the patient's daughter Caremn who is also the POA was requesting a hospice consult. I have tried to speak to her twice however no response. will consult palliative care consultation to address goals of care. Discharge Planning Pending palliative care consultation Problem Qualifiers (1) Sepsis: Qualified Code: A41.9 - Sepsis, due to unspecified organism (2) UTI (urinary tract infection): Qualified Code: N30.00 - Acute cystitis without hematuria (3) HTN (hypertension): Qualified Code: I10 - Essential hypertension (4) Chronic pain: Qualified Code: G89.29 - Other chronic pain Rory Ortega MD Jan 19, 2017 15:52
[2017-01-19 16:00] VITALS: BP 173/79; PULSE 81; RESP 20; TEMP 98.5; O2SAT 99
[2017-01-19] MEDS: LISINOPRIL 10 MG TAB PO SCH (17:00)
[2017-01-19] MEDS: ENOXAPARIN SODIUM 40 MG/0.4 ML SYRINGE SQ SCH (17:01)
[2017-01-19 19:37] VITALS: BP 168/77; PULSE 82; RESP 19; O2SAT 99
[2017-01-19] MEDS: DOXAZOSIN MESYLATE 2 MG TAB PO SCH (22:10)
[2017-01-20] VITALS (7 sets, daily range): BP systolic 116–161; BP diastolic 58–90; PULSE 78–100; RESP 18; TEMP 97.4–98.1; O2SAT 94–99
--- NOTE | 2017-01-20 08:16 | HHI.PR ---
Subjective Remarks This is an 81-year-old female with Hypertension, chronic low back pain, Atrial Fibrillation, brought to ER on 01/17/17 lethargic, weak and sleepy, given IV fluids, improving blood pressure, admitted with Diagnosis of Sepsis, likely secondary to UTI, Encephalopathy, electrolyte derangement, MELVIN, yesterday slightly confused, Hypertensive, WBC trending up, seen in the room in the presence of quality review specialist, the family will decide about the possibility for Hospice placement, the patient is very frail, has UTI sensitive to all antibiotics evaluated, also complaint of Pelvic Hip pain and arm pain status post fall. Objective Vital Signs Date Time Temp Pulse Resp B/P Pulse Ox O2 Delivery O2 Flow Rate FiO2 01/20/17 04:00 97.7 79 18 148/77 98 01/20/17 00:00 97.8 82 18 156/75 99 01/19/17 19:37 82 19 168/77 99 01/19/17 16:00 98.5 81 20 173/79 99 01/19/17 12:00 97.3 94 20 201/92 98 I/O 01/19/17 01/19/17 01/19/17 01/20/17 01/20/17 01/20/17 07:00 15:00 23:00 07:00 15:00 23:00 Intake Total 647 ml 0 ml 240 ml 120 ml Output Total 550 ml 1575 ml Balance 97 ml -1575 ml 240 ml 120 ml Intake Oral 0 ml 240 ml 120 ml IV Total 647 ml Output Urine Total 550 ml 1575 ml # Voids 2 2 # Bowel Movements 0 0 0 Result Diagram: 01/19/17 1327 01/19/17 1327 Imaging Last Impressions Chest X-Ray 01/17/17 1338 Signed Impressions: Service Date/Time: Tuesday, January 17, 2017 13:40 - CONCLUSION: Emphysematous changes of the lungs. No acute abnormality seen. Mayda Russell MD Head CT 01/17/17 0000 Signed Impressions: Service Date/Time: Tuesday, January 17, 2017 14:48 - CONCLUSION: 1. No acute findings. Chronic white matter ischemic changes. Paul Thompson MD Cervical Spine CT 01/17/17 0000 Signed Impressions: Service Date/Time: Tuesday, January 17, 2017 14:48 - CONCLUSION: 1. Chronic C2 fracture through dens without change in alignment or appearance compared with September 2016. No canal stenosis. Stable minimal degenerative anterolisthesis of C4 on C5. Stable facet arthropathy. Paul Thompson MD Procedures No procedures performed. Other Results Laboratory Tests Test 01/17/17 01/17/17 01/19/17 01/19/17 14:07 14:30 07:49 13:27 Lactic Acid Level 1.1 mmol/L Urine Color YELLOW Urine Turbidity HAZY Urine pH 5.5 Urine Specific [place] 1.013 Urine Protein 30 mg/dL Urine Glucose (UA) NEG mg/dL Urine Ketones NEG mg/dL Urine Occult Blood TRACE Urine Nitrite NEG Urine Bilirubin NEG Urine Urobilinogen LESS THAN 2.0 MG/DL Urine Leukocyte Esterase SMALL Urine RBC 4 /hpf Urine WBC 4 /hpf Urine WBC Clumps RARE Urine Squamous Epithelial <1 /hpf Cells Urine Bacteria RARE /hpf Urine Hyaline Casts 35 /lpf Urine Granular Casts 1 /lpf Urine White Blood Cell Casts 5 /lpf Urine Mucus FEW /lpf Microscopic Urinalysis Comment CATH-CULTURE IND Random Vancomycin Level 7.5 COMMENT White Blood Count 17.0 TH/MM3 Red Blood Count 3.95 MIL/MM3 Hemoglobin 12.0 GM/DL Hematocrit 35.9 % Mean Corpuscular Volume 90.9 FL Mean Corpuscular Hemoglobin 30.3 PG Mean Corpuscular Hemoglobin 33.3 % Concent Red Cell Distribution Width 13.7 % Platelet Count 213 TH/MM3 Mean Platelet Volume 8.6 FL Neutrophils (%) (Auto) 86.1 % Lymphocytes (%) (Auto) 1.0 % Monocytes (%) (Auto) 12.7 % Eosinophils (%) (Auto) 0.1 % Basophils (%) (Auto) 0.1 % Neutrophils # (Auto) 14.6 TH/MM3 Lymphocytes # (Auto) 0.2 TH/MM3 Monocytes # (Auto) 2.1 TH/MM3 Eosinophils # (Auto) 0.0 TH/MM3 Basophils # (Auto) 0.0 TH/MM3 CBC Comment DIFF FINAL Differential Comment Sodium Level 137 MEQ/L Potassium Level 4.3 MEQ/L Chloride Level 104 MEQ/L Carbon Dioxide Level 18.9 MEQ/L Anion Gap 14 MEQ/L Blood Urea Nitrogen 34 MG/DL Creatinine 0.96 MG/DL Estimat Glomerular Filtration 56 ML/MIN Rate Random Glucose 78 MG/DL Calcium Level 8.7 MG/DL Total Bilirubin 1.0 MG/DL Aspartate Amino Transf 42 U/L (AST/SGOT) Alanine Aminotransferase 34 U/L (ALT/SGPT) Alkaline Phosphatase 106 U/L Total Protein 6.4 GM/DL Albumin 2.9 GM/DL Objective Remarks GENERAL: Frail lady, in no apparent distress. SKIN: No rashes, ecchymoses or lesions. Cool and dry. There is a skin tear in the left lower extremity covered by dressing which is C/D/I HEAD: Atraumatic. Normocephalic. No temporal or scalp tenderness. EYES: Pupils equal round and reactive. Extraocular motions intact. No scleral icterus. No injection or drainage. ENT: Nose without bleeding, purulent drainage or septal hematoma. Throat without erythema, tonsillar hypertrophy or exudate. Uvula midline. Airway patent. [place] collar in place. NECK: Trachea midline. No JVD or lymphadenopathy. Supple, nontender, no meningeal signs. [place] collar in place CARDIOVASCULAR: Irregularly irregular rhythm without murmurs, gallops, or rubs. RESPIRATORY: Clear to auscultation. Breath sounds equal bilaterally. No wheezes , rales, or rhonchi. GASTROINTESTINAL: Abdomen soft, non-tender, nondistended. No hepato-splenomegaly , or palpable masses. No guarding. MUSCULOSKELETAL: Extremities without clubbing, cyanosis, or edema. No joint tenderness, effusion, or edema noted. No calf tenderness. Negative Homans sign bilaterally. NEUROLOGICAL: Awake and alert. Cranial nerves II through XII intact. Motor and sensory grossly within normal limits. Five out of 5 muscle strength in all muscle groups. Normal speech. Medications and IVs Current Medications Medications (Trade) Dose Ordered Sig/Ally Route Start Time Stop Time Status Last Admin (NS Flush) 2 ml UNSCH PRN IV FLUSH 01/17/17 16:45 (NS Flush) 2 ml BID IV FLUSH 01/17/17 21:00 01/19/17 22:10 (Tylenol) 650 mg Q4H PRN PO 01/17/17 16:45 01/18/17 05:38 (Zofran Inj) 4 mg Q6H PRN IVP 01/17/17 16:45 (Lovenox Inj) 40 mg Q24H SQ 01/17/17 18:00 01/19/17 17:01 (Coreg) 6.25 mg BID PO 01/18/17 14:15 01/19/17 22:10 (Catapres-Tts 0.2 Mg Patch.7d) 1 patch Q7D T-DERMAL 01/18/17 15:00 01/18/17 16:06 Miscellaneous Information 1 Q7D T-DERMAL 01/25/17 15:00 ([place] 5-325 Mg) 1 tab Q4H PRN PO 01/18/17 14:30 (Ativan) 0.5 mg BID PRN PO 01/18/17 14:30 01/19/17 22:14 Amlodipine Besylate 5 mg 5 mg DAILY PO 01/19/17 10:00 01/19/17 11:43 (Rocephin Inj/NS Inj) 100 ml @ 200 mls/hr Q24H IV 01/19/17 11:00 01/19/17 11:43 (Vasotec Inj) 2.5 mg Q6H PRN IV PUSH 01/19/17 15:15 (Cardura) 2 mg HS PO 01/19/17 21:00 01/19/17 22:10 (Microzide) 12.5 mg DAILY PO 01/20/17 09:00 (Prinivil) 10 mg DAILY PO 01/19/17 16:00 01/19/17 17:00 A/P Assessment and Plan 1. Sepsis likely secondary to UTI, following blood culture and WBC count. on Rocephin 2. Acute Metabolic Encephalopathy due to sepsis resolved 3. UTI on Rocephin, Proteus Mirabilis sensitive to all antibiotics evaluated. 4. Hypertension controlled. 5. electrolyte derangement replaced. 6. C2 Cervical Fracture chronic continue [place] Collar 7. MELVIN Improved. 8. Chronic Pain syndrome continue Percocet 9. Anxiety disorder, stable on home Clonazepam. 10. Hip pain bilateral and arm pain asked for X rays. Left proximal Humerus deformity but did not found Fracture Left Pubic rami fracture. conservative management. Discussed with Patient, Palliative Care Miss Morales and Grand-Daughter in the room. DVT prophylaxis with Lovenox Discharge Planning Awaiting final by Range Conservationist. Luis Acuña MD Jan 20, 2017 08:16
[2017-01-20] MEDS: HYDROCHLOROTHIAZIDE 12.5 MG CAP PO SCH (08:58)
[2017-01-20] MEDS: CARVEDILOL 6.25 MG TAB PO SCH ×2 (08:58→20:37)
[2017-01-20] MEDS: SODIUM CHLORIDE 0.9% FLUSH 10 ML FLUSH IV FLUSH SCH ×2 (08:58→20:38)
[2017-01-20] MEDS: amLODIPine BESYLATE 5 MG TAB PO SCH (08:58)
[2017-01-20] MEDS: LISINOPRIL 10 MG TAB PO SCH (08:58)
--- NOTE | 2017-01-20 11:50 | PD.CONS ---
Consult Service Palliative Care . Consult Requested By Dr. Quintero . Primary Care Physician Non-Staff . Reason for Consultation a. To assist with evaluation and management of symptoms including: pain, debility, decreased appetite. b. To assist medical decision maker(s) with: better understanding of current medical conditions; weighing benefits/burdens of medical treatment options; making medical treatment decisions. . (Chloe Pardo) HPI History of Present Illness Ms. Vo is an 81-year-old female who is familiar to the palliative care team. She presented to [place] ED on 01/17/17 via EMS from [facility] for evaluation of overall progressive decline and weakness x 4-5 days. Patient had a recent fall, but refused to go to the ED evaluation at that time. Apparently , the patient was not moving her left upper extremity and had weakness in her left lower extremity on the morning of 01/17/17. Patient's daughter reported she found her mother "almost unconscious " and called 911. When EMS arrived, the patient's histology blood pressure was in the 70s. Her speech was garbled and difficult to understand. She was oriented to self only. Past medical history is significant for Alzheimer's disease, depression/anxiety , questionable bipolar disorder, eating disorder, scoliosis, hypertension, CAD, CVA/TIA, C2 fracture, encephalopathy and endometriosis. Of note, the patient was hospitalized in September, for management of altered mental status, UTI , acute kidney injury, hypokalemia and chronic nondisplaced cervical spine fracture that occurred in 2014 but appeared to be worsening. Additional diagnostic findings: * Vital signs: Pulse 100, respirations 24, BP 142/73, oxygen saturation 95% on room air * WBC: 14.9, hemoglobin 11.6, hematocrit 32.6, platelets 173, neutrophils 83.5% * Sodium: 125, potassium 2.7, chloride 85, carbon dioxide 25.1, glucose 93, calcium 8.3 * BUN: 54, creatinine 2.52, GFR 18 * Lactic acid: 1.1 * Total bilirubin: 0.7, AST 53, ALT 33, alkaline phosphatase 94 * Total protein 6.5, albumin 3.2 * Urine culture: + Proteus Mirabilis * Blood culture: No growth in 2 days * Chest x-ray: Emphysematous changes of the lungs, no acute abnormalities seen. * CT cervical spine: Chronic C2 fracture through dens without change in alignment or appearance compared with previous imaging in September,. No canal stenosis. Stable minimal degenerative anterolisthesis of C4 on C5. Stable facet arthropathy. * CT brain: No acute findings, chronic white matter ischemic changes. * EKG: Atrial fibrillation, left bundle branch block, left axis deviation. Heart rate of 96. On presentation to the ED the patient had an elevated heart rate, leukocytosis and hypotension. Urinalysis was positive. While in the ED, the patient became profoundly hypotensive with systolic blood pressures in the 60s. IV fluid were administered with improvement of blood pressure and IV antibiotics were issued. Patient was admitted for further evaluation and medical management of electrolyte imbalances and sepsis, likely secondary to urinary tract infection. Plan was discussed with patient's daughter and patient's CODE STATUS was addressed by the ED physician. Per notes, the patient's daughter stated her mother had strongly expressed her wishes to be a DNR when she was "with it"and she would like to respect that. Patient was NO CODE/DNR during her most recent hospitalization in September, as well. Patient remains intermittently confused. WBC trending upward, from 14.9 to 17.0. Blood cultures have shown no growth in 2 days. Urine culture was positive for Proteus Mirabilis. Patient remains on IV Rocephin. Patient's antihypertensive medications were held on the day of admission due to patient's hypotension. Patient's BP then became extremely hypertensive with systolic blood pressures in the 200s. Medications have been restarted and the patient's blood pressure is now controlled. Electrolyte imbalances have resolved. Kidney functioning is improving. Patient remains weak, physical therapy following. Patient is currently bedbound , unable to transfer from supine to sitting. Patient complaining of pain "all over" but was unable to rate pain or describe pain at this time. Family reporting patient continues to pain in left upper extremity and hips s/p recent fall. X-rays were ordered. Palliative care was consulted to assist with symptom management discussed with the patient and family the benefits and burdens of her current illness and the options regarding future care. . Function/Cognitive Trajectory Per family, the patient has been having a slow decline since 03/18/15 when she fell and suffered a C2 fracture. The trajectory of her decline has been more rapid since August,. The patient's daughter, Carmen, states that last August the patient was ambulating safely with a walker. She was independent for all ADL and active socially. 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 The patient was hospitalized for approximately one week in September status post a fall for treatment of AMS, UTI , MELVIN, hypokalemia and a chronic closed/nondisplaced cervical spine fracture. Upon discharge she went to rehabilitation before returning to [facility]. Family reporting one week prior top the patient's current hospitalization the patient became increasingly weak. Daughter states her mother went from walking with a walker to be walking and then bedridden within a few days. Appetite is poor, eating only bites. Patient has become less social and is now dependent for all ADLs, having episodes of bowel and bladder incontinence. Patient was readmitted on 01/17/17 for medical management of dehydration and sepsis, likely secondary to a urinary tract infection. As of today, the patient has been seeing her and talking to other relatives who have past. . (Chloe Pardo) Review of Systems ROS Limitations: Clinical Condition, Altered Mental Status, Poor Historian ( Patient is a poor historian and provided limited information. Information obtained from family report and review of notes.) Constitutional: COMPLAINS OF: Fatigue, Weight loss (approximately 10lb weight loss in the past several month per patient and family.), Change in appetite ( eating only bites), Pain (patient states "it hurts all over"), Generalized weakness (bedbound) Ears, nose, mouth, throat: DENIES: Epistaxis Respiratory: DENIES: Shortness of breath Cardiovascular: DENIES: Palpitations, Syncope, Lower Extremity Edema Gastrointestinal: COMPLAINS OF: Constipation (No bowel movement documented since admission on 01/17/17), Anorexia (history of anorexia and bulimia) Genitourinary: COMPLAINS OF: Urinary incontinence Musculoskeletal: COMPLAINS OF: Back pain, Neck pain Hematologic/Lymphatics: COMPLAINS OF: Bruising Neurologic: COMPLAINS OF: Abnormal gait, Localized weakness, Poor Balance Psychiatric: COMPLAINS OF: Anxiety, Confusion, Depression (Chloe Pardo) Past Family Social History Coded Allergies: No Known Allergies (Unverified , 4/9/17) Past Medical History = Questionable bipolar disorderpatient has had at least 3 psychiatric hospitalizations when her children were young. Her daughter is certain what the diagnosis was but thought it might be bipolar disorder. Patient was on diazepam and would go for shots once a month. = Alzheimer's disease = Depression/Anxiety = Eating disorderboth anorexia and purging with laxatives = Scoliosis = Hypertension = CAD = CVA/TIA = C2 fracture = Endometriosis = Encephalopathy = Recent UTI . Past Surgical History = Appendectomy = Hysterectomy = Tonsillectomy = Cervical fracture status post fall = Cataract surgery = PEG insertion/removal . Reported Medications Lorazepam 0.5 Mg Tab 0.5 Mg PO BID PRN Cholestyramine 4 Gm/Dose Powd 4 Gm PO TID 1 level scoopful of powder contains 4 grams of cholestyramine. Vitamin D3 (Cholecalciferol) 1,000 Unit Chew 1,500 Units CHEW WEEKLY Carvedilol 6.25 Mg Tab 6.25 Mg PO BID Hydrochlorothiazide 12.5 Mg Cap 12.5 Mg PO DAILY Lisinopril 20 Mg Tab 10 Mg PO DAILY Vitamin C (Ascorbic Acid) 500 Mg Chew 500 Mg CHEW DAILY . Current Medications Medications (Trade) Dose Ordered Sig/Ally Route Start Time Stop Time Status Last Admin (NS Flush) 2 ml UNSCH PRN IV FLUSH 01/17/17 16:45 (NS Flush) 2 ml BID IV FLUSH 01/17/17 21:00 01/20/17 08:58 (Tylenol) 650 mg Q4H PRN PO 01/17/17 16:45 01/18/17 05:38 (Zofran Inj) 4 mg Q6H PRN IVP 01/17/17 16:45 (Lovenox Inj) 40 mg Q24H SQ 01/17/17 18:00 01/19/17 17:01 (Coreg) 6.25 mg BID PO 01/18/17 14:15 01/20/17 08:58 (Catapres-Tts 0.2 Mg Patch.7d) 1 patch Q7D T-DERMAL 01/18/17 15:00 01/18/17 16:06 Miscellaneous Information 1 Q7D T-DERMAL 01/25/17 15:00 ([place] 5-325 Mg) 1 tab Q4H PRN PO 01/18/17 14:30 (Ativan) 0.5 mg BID PRN PO 01/18/17 14:30 01/19/17 22:14 Amlodipine Besylate 5 mg 5 mg DAILY PO 01/19/17 10:00 01/20/17 08:58 (Rocephin Inj/NS Inj) 100 ml @ 200 mls/hr Q24H IV 01/19/17 11:00 01/19/17 11:43 (Vasotec Inj) 2.5 mg Q6H PRN IV PUSH 01/19/17 15:15 (Cardura) 2 mg HS PO 01/19/17 21:00 01/19/17 22:10 (Microzide) 12.5 mg DAILY PO 01/20/17 09:00 01/20/17 08:58 (Prinivil) 10 mg DAILY PO 01/19/17 16:00 01/20/17 08:58 Family History Familial history of alcoholism.father and a brother of cirrhosis. Mother and another brother from heart disease. Two uncles had unknown type of mental illness. . Substance Use Tobacco: Never smoked Alcohol: Heavy EtOH consumption in the past, particularly after 's . Prescription med abuse: No known abuse. Illicits: No known use of illicits. . Psychosocial History Ms. Vo is originally from [place], [place]. She lived in [place], [place] and [facility] before moving to [place] to be near her daughters. The patient has a high school diploma but did not complete college. She worked primarily as a homemaker. She was once but is now . Together she and her have 3 daughters, now in their 50s. One daughter lives locally in [place]; one daughter lives in the [facility]; and one daughter lives in [place]. Patient has 8 grandchildren and 7 great-grandchildren. Ms. Vo of a brain tumor while receiving hospice services and [place], [place]. Ms. Vo had 2 brothers, both . She is a long-term resident at [facility] in [place], [place]. . Spiritual/Cultural Factors Patient does not consider herself uatsdin or spiritual. Her was Baptist and she "became Baptist" when her was being treated for a brain tumor. . (Chloe Pardo) Living Will: Completed, but not made available Health Care Surrogate: Completed, but not made available Durable Power of [employer] Paraprofessional: Completed, but not made available Date completed: Unknown. Patient reports she has completed these documents. . Health Care Surrogate(s): Patient tells me that her youngest daughter (Carmen) who lives in [place] is her health care surrogate and power of senior trial attorney. Daughter, Pamela, confirms this. We do not have documentation confirming this. . Documented care wishes: No written documentation of care wishes. . Today's verbally stated goals: Patient did not verbalize medical treatment goals today, likely secondary to lethargy and generalized weakness. She remains intermittently confused, responding to simple questions with brief answers. . Family/friends goals: Family considering transitioning to comfort focused care. Tentative family meeting with palliative care tomorrow 01/21/17. . Ethical and Legal Issues Capacity is questionable. Patient's anxiety, intermittent confusion and reasoning deficits are likely interfering with her ability to fully understand her illness and weighed the benefits/burdens of treatment options. Recommend her health care surrogatedaughter Carmen - be consulted. (Chloe Pardo) Physical Exam Vital Signs Date Time Temp Pulse Resp B/P Pulse Ox O2 Delivery O2 Flow Rate FiO2 01/20/17 08:00 98.1 100 18 161/90 98 01/20/17 04:00 97.7 79 18 148/77 98 01/20/17 00:00 97.8 82 18 156/75 99 01/19/17 19:37 82 19 168/77 99 01/19/17 16:00 98.5 81 20 173/79 99 01/19/17 12:00 97.3 94 20 201/92 98 . 01/19/17 01/20/17 19:00 07:00 Intake Total 0 ml 360 ml Output Total 1575 ml Balance -1575 ml 360 ml Intake Oral 0 ml 360 ml Output Urine Total 1575 ml # Voids 4 # Bowel Movements 0 0 . Exam CONSTITUTIONAL/GENERAL: This is a frail elderly female in no acute distress TUBES/LINES/DRAINS: PIV types to SKIN: No jaundice, rashes, or lesions. Ecchymoses on upper extremities and hips bilaterally. No wounds seen anteriorly. Skin temperature appropriate. Not diaphoretic. HEAD: Atraumatic. Normocephalic. EYES: Pupils equal and round and reactive. Extraocular motions intact. No scleral icterus. No injection or drainage. Fundi not examined. ENT: Hearing grossly normal. Nose without bleeding or purulent drainage. NECK: Trachea midline. Supple, nontender. No palpable thyroid enlargement or nodularity. CARDIOVASCULAR: Irregularly irregular without murmurs, gallops, or rubs. No JVD. Peripheral pulses symmetric. RESPIRATORY/CHEST: Symmetric, unlabored respirations. Clear to auscultation. Breath sounds equal bilaterally. No wheezes, rales, or rhonchi. GASTROINTESTINAL: Abdomen soft, non-tender, nondistended. No hepato-splenomegaly , or palpable masses. No guarding. Bowel sounds present. GENITOURINARY: Without palpable bladder distension. MUSCULOSKELETAL: Extremities without clubbing, cyanosis, or edema. LYMPHATICS: No palpable cervical or supraclavicular adenopathy. NEUROLOGICAL: Awake, lethargic. Intermittently confused. Response to simple questions with brief answers. Follows some commands. PSYCHIATRIC: Patient seeing and talking to family members who are . Exhibiting no anxiety or agitation on exam. . (Chloe Pardo) Diagnostic Tests Laboratory Laboratory Tests Test 01/17/17 01/17/17 01/17/17 01/17/17 14:05 14:07 14:30 21:30 Sodium Level 125 MEQ/L 128 MEQ/L (136-145) (136-145) Potassium Level 2.7 MEQ/L 3.0 MEQ/L (3.5-5.1) (3.5-5.1) Chloride Level 85 MEQ/L 95 MEQ/L (98-107) (98-107) Carbon Dioxide Level 25.1 MEQ/L 20.9 MEQ/L (21.0-32.0) (21.0-32.0) Anion Gap 15 MEQ/L (5-15) 12 MEQ/L (5-15) Blood Urea Nitrogen 54 MG/DL (7-18) 50 MG/DL (7-18) Creatinine 2.52 MG/DL 1.79 MG/DL (0.50-1.00) (0.50-1.00) Estimat Glomerular Filtration 18 ML/MIN (>89) 27 ML/MIN (>89) Rate Random Glucose 93 MG/DL 85 MG/DL (74-106) (74-106) Calcium Level 8.3 MG/DL 7.8 MG/DL (8.5-10.1) (8.5-10.1) Total Bilirubin 0.7 MG/DL (0.2-1.0) Aspartate Amino Transf 53 U/L (15-37) (AST/SGOT) Alanine Aminotransferase 33 U/L (10-53) (ALT/SGPT) Alkaline Phosphatase 94 U/L (45-117) Total Protein 6.5 GM/DL (6.4-8.2) Albumin 3.2 GM/DL (3.4-5.0) White Blood Count 14.9 TH/MM3 (4.0-11.0) Red Blood Count 3.72 MIL/MM3 (4.00-5.30) Hemoglobin 11.6 GM/DL (11.6-15.3) Hematocrit 32.6 % (35.0-46.0) Mean Corpuscular Volume 87.8 FL (80.0-100.0) Mean Corpuscular Hemoglobin 31.3 PG (27.0-34.0) Mean Corpuscular Hemoglobin 35.7 % Concent (32.0-36.0) Red Cell Distribution Width 13.3 % (11.6-17.2) Platelet Count 173 TH/MM3 (150-450) Mean Platelet Volume 9.5 FL (7.0-11.0) Neutrophils (%) (Auto) 83.5 % (16.0-70.0) Lymphocytes (%) (Auto) 8.0 % (9.0-44.0) Monocytes (%) (Auto) 8.3 % (0.0-8.0) Eosinophils (%) (Auto) 0.1 % (0.0-4.0) Basophils (%) (Auto) 0.1 % (0.0-2.0) Neutrophils # (Auto) 12.5 TH/MM3 (1.8-7.7) Lymphocytes # (Auto) 1.2 TH/MM3 (1.0-4.8) Monocytes # (Auto) 1.2 TH/MM3 (0-0.9) Eosinophils # (Auto) 0.0 TH/MM3 (0-0.4) Basophils # (Auto) 0.0 TH/MM3 (0-0.2) CBC Comment DIFF FINAL Differential Comment Lactic Acid Level 1.1 mmol/L (0.4-2.0) Urine Color YELLOW (YELLW/STRAW) Urine Turbidity HAZY (CLEAR) Urine pH 5.5 (5.0-8.5) Urine Specific [place] 1.013 (1.002-1.035) Urine Protein 30 mg/dL (NEG-TRACE) Urine Glucose (UA) NEG mg/dL (NEG) Urine Ketones NEG mg/dL (NEG) Urine Occult Blood TRACE (NEG) Urine Nitrite NEG (NEG) Urine Bilirubin NEG (NEG) Urine Urobilinogen LESS THAN 2.0 MG/DL (LESS THAN 2.0) Urine Leukocyte Esterase SMALL (NEG) Urine RBC 4 /hpf (0-3) Urine WBC 4 /hpf (0-5) Urine WBC Clumps RARE (NONE) Urine Squamous Epithelial <1 /hpf (0-5) Cells Urine Bacteria RARE /hpf (NONE) Urine Hyaline Casts 35 /lpf (RARE) Urine Granular Casts 1 /lpf (NONE) Urine White Blood Cell Casts 5 /lpf (NONE) Urine Mucus FEW /lpf (OCC) Microscopic Urinalysis Comment CATH-CULTURE IND Test 01/18/17 01/18/17 01/19/17 01/19/17 06:47 20:10 07:49 13:27 White Blood Count 16.5 TH/MM3 17.0 TH/MM3 (4.0-11.0) (4.0-11.0) Red Blood Count 3.74 MIL/MM3 3.95 MIL/MM3 (4.00-5.30) (4.00-5.30) Hemoglobin 11.5 GM/DL 12.0 GM/DL (11.6-15.3) (11.6-15.3) Hematocrit 33.1 % 35.9 % (35.0-46.0) (35.0-46.0) Mean Corpuscular Volume 88.5 FL 90.9 FL (80.0-100.0) (80.0-100.0) Mean Corpuscular Hemoglobin 30.8 PG 30.3 PG (27.0-34.0) (27.0-34.0) Mean Corpuscular Hemoglobin 34.8 % 33.3 % Concent (32.0-36.0) (32.0-36.0) Red Cell Distribution Width 13.4 % 13.7 % (11.6-17.2) (11.6-17.2) Platelet Count 188 TH/MM3 213 TH/MM3 (150-450) (150-450) Mean Platelet Volume 9.2 FL 8.6 FL (7.0-11.0) (7.0-11.0) Neutrophils (%) (Auto) 84.8 % 86.1 % (16.0-70.0) (16.0-70.0) Lymphocytes (%) (Auto) 6.3 % 1.0 % (9.0-44.0) (9.0-44.0) Monocytes (%) (Auto) 8.6 % (0.0-8.0) 12.7 % (0.0-8.0) Eosinophils (%) (Auto) 0.2 % (0.0-4.0) 0.1 % (0.0-4.0) Basophils (%) (Auto) 0.1 % (0.0-2.0) 0.1 % (0.0-2.0) Neutrophils # (Auto) 14.0 TH/MM3 14.6 TH/MM3 (1.8-7.7) (1.8-7.7) Lymphocytes # (Auto) 1.0 TH/MM3 0.2 TH/MM3 (1.0-4.8) (1.0-4.8) Monocytes # (Auto) 1.4 TH/MM3 2.1 TH/MM3 (0-0.9) (0-0.9) Eosinophils # (Auto) 0.0 TH/MM3 0.0 TH/MM3 (0-0.4) (0-0.4) Basophils # (Auto) 0.0 TH/MM3 0.0 TH/MM3 (0-0.2) (0-0.2) CBC Comment DIFF FINAL DIFF FINAL Differential Comment Sodium Level 133 MEQ/L 136 MEQ/L 137 MEQ/L (136-145) (136-145) (136-145) Potassium Level 2.8 MEQ/L 3.8 MEQ/L 4.3 MEQ/L (3.5-5.1) (3.5-5.1) (3.5-5.1) Chloride Level 98 MEQ/L 102 MEQ/L 104 MEQ/L (98-107) (98-107) (98-107) Carbon Dioxide Level 19.4 MEQ/L 22.3 MEQ/L 18.9 MEQ/L (21.0-32.0) (21.0-32.0) (21.0-32.0) Anion Gap 16 MEQ/L (5-15) 12 MEQ/L (5-15) 14 MEQ/L (5-15) Blood Urea Nitrogen 46 MG/DL (7-18) 41 MG/DL (7-18) 34 MG/DL (7-18) Creatinine 1.29 MG/DL 1.08 MG/DL 0.99 MG/DL 0.96 MG/DL (0.50-1.00) (0.50-1.00) (0.50-1.00) (0.50-1.00) Estimat Glomerular Filtration 40 ML/MIN (>89) 49 ML/MIN (>89) 54 ML/MIN (>89) 56 ML/MIN (>89) Rate Random Glucose 73 MG/DL 63 MG/DL 78 MG/DL (74-106) (74-106) (74-106) Calcium Level 8.2 MG/DL 8.3 MG/DL 8.7 MG/DL (8.5-10.1) (8.5-10.1) (8.5-10.1) Total Bilirubin 0.6 MG/DL 1.0 MG/DL (0.2-1.0) (0.2-1.0) Aspartate Amino Transf 57 U/L (15-37) 42 U/L (15-37) (AST/SGOT) Alanine Aminotransferase 38 U/L (10-53) 34 U/L (10-53) (ALT/SGPT) Alkaline Phosphatase 100 U/L 106 U/L (45-117) (45-117) Total Protein 6.1 GM/DL 6.4 GM/DL (6.4-8.2) (6.4-8.2) Albumin 3.0 GM/DL 2.9 GM/DL (3.4-5.0) (3.4-5.0) Random Vancomycin Level 7.5 COMMENT . (Chloe Pardo) Result Diagram: 01/19/17 1327 01/19/17 1327 Microbiology Microbiology Date/Time Procedure Status Source Growth 01/17/17 13:58 Aerobic Blood Culture - Preliminary Resulted Blood Peripheral NO GROWTH IN 2 DAYS 01/17/17 13:58 Anaerobic Blood Culture - Preliminary Resulted Blood Peripheral NO GROWTH IN 2 DAYS 01/17/17 14:05 Aerobic Blood Culture - Preliminary Resulted Blood Peripheral NO GROWTH IN 2 DAYS 01/17/17 14:05 Anaerobic Blood Culture - Preliminary Resulted Blood Peripheral NO GROWTH IN 2 DAYS 01/17/17 14:30 Urine Culture - Final Complete Urine Catheterized Urine Proteus Mirabilis . (Chloe Pardo) Patient/Family Conference Family Conference Location: Bedside, Hallway Issues Discussed: * Palliative care role, purpose, approach * Additional medical, psychosocial, and spiritual history * Patients general health, functional status, and cognitive changes in the months leading up to the current hospitalization * Patient/family understanding of the current medical problems * Patient/family understanding of prognosis * Patients goals of care as best understood from advance directives and/or conversations and/or values * Current medical treatment options and benefits/burdens of those options * Likely scenarios comparing ongoing aggressive care with a transition to comfort measures only * Questions answered to the best of my ability * Palliative care contact information provided . 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 Patient nutritional intake is minimal, eating only bites. BMI 19.3. . (2) Pain Comment: Patient states she has pain "all over" but was unable to rate or described pain. She has a history of chronic neck and back pain and follows a pain specialist outpatient. Currently has orders for PRN [place] every 4 hours PO that is being sparingly use. (3) Debility Comment: Patient has had an acute decline in the past week. She has gone from ambulating safely with a walker to being bedbound, unable to transition from supine position to sitting. Now completely dependent for all ADLs, incontinent of bowel and bladder. Physical therapy is following. Pertinent Non-Medical Issues Psychosocial: Ms. Vo is noted. She has 3 adult childrenMichelle is an port [place]; the liver is an [place]; this in [place]. Spiritual: Jehovah'S Witness and spirituality have NOT been an important part of the patient's life. Her was Baptist and she "became Baptist" when her was being treated for a brain tumor. Legal: Patient previously stated that her youngest daughter (Carmen) who lives in [place] is her health care surrogate and power of senior trial attorney. Daughter, Pamela , had confirmed this. We do not have documentation confirming this. The patient's 3 daughters are very close and worked together on decisions regarding the patient's medical care. Ethical issues impacting care: Capacity is questionable. Patient's anxiety, intermittent confusion and reasoning deficits are likely interfering with her ability to fully understand her illness and weighed the benefits/burdens of treatment options. Recommend her health care surrogatedaughter Carmen - be consulted. . Important Contacts Carmen Li (daughter; lives in [place]) [phone] Pamela Marisela (daughter; lives in [place]; [phone] Christina (daughter, lives in [place]) . Prognosis Patient is an 81-year-old female who has experienced an acute decline in recent months. She was hospitalized in September, and again in January, with electrolyte imbalances, altered mental status and UTI. Patient has chronic pain secondary to a C2 fracture sustained in 03/2015 after a fall. Patient has a history of anorexia and bulimia that spans several decades, suspected bipolar disorder that was never treated and Alzheimer's dementia. She also has a history of hypertension, noncompliant with medications at times which puts the patient at increased risk for stroke and other complications. She is now having increased confusion, recurrent infections requiring hospitalization and multiple falls. She is taking only bites of food and is now bedbound. Patient has had a clear decline since her last hospitalization 4 months ago which will more than likely continue. It is reasonable to say the patient's expectancy is < 6 months. Patient is appropriate for hospice services if her medical treatment goals are comfort oriented - this appears to be the case after aching with patient's daughter. . Code Status: No Code Plan * NO CODE * Decision making: Capacity is questionable. Patient's anxiety, intermittent confusion and reasoning deficits are likely interfering with her ability to fully understand her illness and weighed the benefits/burdens of treatment options. Patient previously stated that her youngest daughter (Carmen) who lives in [place] is her health care surrogate and power of senior trial attorney. Daughter, Pamela, had confirmed this. We do not have documentation confirming this. The patient's 3 daughters are very close and worked together on decisions regarding the patient's medical care. Recommend her health care surrogate daughter Carmen - be consulted. * Goals: Possible transition to comfort focus carepending family meeting with palliative care on 01/21/17. * Symptom managementpain: Patient states she has pain "all over" but was unable to rate or described pain. She has a history of chronic neck and back pain and follows a pain specialist outpatient. Currently has orders for PRN [place] every 4 hours PO that is being sparingly use. Palliative care will monitor PRN requirements and make recommendations as indicated. No recommendations at this time. Patient continues to have LUE and hip pain s/p falling last week. Orders placed for imaging of forearm, humerus and hip. * Symptom managementdecreased appetite: Patient has a history of anorexia and bulimia that spans several decades. The patient and family report an approximate weight loss of 10 pounds in the past few months. Patient nutritional intake is minimal, eating only bites. BMI 19.3. Patient has previously had PEG tube insertion and removal; family indicating they do not believe the patient would consent to artificial nutrition at this time in her life. * In the managementdebility: Patient has had an acute decline in the past week. She has gone from ambulating safely with a walker to being bedbound, unable to transition from supine position to sitting. Now completely dependent for all ADLs, incontinent of bowel and bladder. Physical therapy is following. If goals remain aggressive patient will need to be placed at a [facility] facility with rehabilitation upon discharge. * Discussed with Dr. Almeida. * Care contact information provided to patient's daughter, Carmen. * Tentative family meeting with palliative care tomorrow 01/21/17 * Palliative care will continue to follow this patient throughout her hospitalization to establish trust, assist with symptom management and clarification of medical treatment goals . (Chloe Pardo) Thank you for the opportunity to participate in the care of Ms. Vo. (Chloe Pardo) Attestation To help prompt me to consider important information that might be impacting today's encounter and assessment, information from prior notes written by myself or my colleagues may have been "brought forward" into today's note. My signature on this note, however, is an attestation that I personally performed the exam, history, and/or decision-making noted today, and, unless otherwise indicated, the interactions with patient, family, and staff as well as the review of records all occurred today. I also attest that the listed assessment and stated plan reflect my best clinical judgment today based on the combination of historical information, prior notes, and today's exam/ interactions. When time spent is documented, it refers only to time spent today by the signer, or if indicated, combined time spent today by collaborating physician/nurse practitioner. . (Chloe Pardo) Collaborating MD Comments . Chart reviewed. Cased discussed with palliative care STOREROOM ATTENDANT. Above STOREROOM ATTENDANT note reviewed and I concur. . (Jason Springer MD) Chloe Pardo Jan 20, 2017 11:45 Jason Springer MD March 08, 2017 15:08
[2017-01-20 12:09] LABS: AUTOMATED NEUTROPHIL # 13.4 TH/MM3 (1.8-7.7); BASOPHIL % 0.2 % (0.0-2.0); HEMATOCRIT 34.8 % (35.0-46.0); HEMO FLAGS DIFF FINAL; LYMPH % 8.3 % (9.0-44.0); LYMPHOCYTE # 1.3 TH/MM3 (1.0-4.8); MEAN CORPUSCULAR HEMOGLOBIN 30.7 PG (27.0-34.0); MEAN CORPUSCULAR HGB CONC 34.1 % (32.0-36.0); MONO % 5.9 % (0.0-8.0); NEUT % 85.6 % (16.0-70.0); PLATELET COUNT 208 TH/MM3 (150-450); RED BLOOD COUNT 3.86 MIL/MM3 (4.00-5.30); RED CELL DISTRIBUTION WIDTH 13.8 % (11.6-17.2); WHITE BLOOD COUNT 15.7 TH/MM3 (4.0-11.0)
[2017-01-20] MEDS: cefTRIAXone INJ 1,000 MG in SODIUM CHLORIDE 0.9% INJ 100 ML IV SCH (12:21)
--- NOTE | 2017-01-20 15:11 | RADRPT ---
EXAM DATE/TIME: 01/20/2017 14:51 [facility] COMPARISON: No previous studies available for comparison. INDICATIONS : Left hip pain after falling. MEDICAL HISTORY : Cardiovascular disease. Stroke Alzheimers. SURGICAL HISTORY : None. ENCOUNTER: Subsequent ACUITY: 3 days PAIN SCORE: 5/10 LOCATION: Left hip. FINDINGS: Decreased bone density. There is a fracture of the left superior as well as inferior pubic ramus iden tified. CONCLUSION: Left pubic rami fractures. Gary Fernandez MD on January 20, 2017 at 15:09 Board Certified Radiologist. This report was verified electronically.
--- NOTE | 2017-01-20 15:11 | RADRPT ---
EXAM DATE/TIME: 01/20/2017 14:53 [facility] COMPARISON: No previous studies available for comparison. INDICATIONS : Left forearm pain after falling MEDICAL HISTORY : Cardiovascular disease. Stroke Alzheimers. SURGICAL HISTORY : None. ENCOUNTER: Subsequent ACUITY: 3 days PAIN SCORE: 5/10 LOCATION: Left forearm. FINDINGS: Two view examination of the left forearm demonstrates no evidence of fracture or dislocation. Bony m ineralization is decreased. The soft tissue structures are intact. IV catheter tubing is noted. CONCLUSION: Decreased bone density. No obvious fractures. Gary Fernandez MD on January 20, 2017 at 15:09 Board Certified Radiologist. This report was verified electronically.
--- NOTE | 2017-01-20 15:16 | RADRPT ---
EXAM DATE/TIME: 01/20/2017 14:51 [facility] COMPARISON: FOREARM LEFT (2VWS), January 20, 2017, 14:53. INDICATIONS : Left shoulder pain after falling. MEDICAL HISTORY : Cardiovascular disease. Stroke Alzheimers. SURGICAL HISTORY : None. ENCOUNTER: Subsequent ACUITY: 3 days PAIN SCORE: 5/10 LOCATION: Left shoulder. FINDINGS: The bone density is decreased. There is a concavity seen along the medial aspect of the left humeral head suggesting possible Hill-Sachs deformity, impacted fracture. A CT scan would be helpful for furt her assessment. CONCLUSION: Left proximal humerus deformity, age-indeterminate. Gary Fernandez MD on January 20, 2017 at 15:11 Board Certified Radiologist. This report was verified electronically.
[2017-01-20] MEDS: ENOXAPARIN SODIUM 40 MG/0.4 ML SYRINGE SQ SCH (17:52)
[2017-01-20] MEDS: LORazepam 0.5 MG TAB PO PRN (17:52)
[2017-01-20] MEDS: DOXAZOSIN MESYLATE 2 MG TAB PO SCH (20:37)
[2017-01-21] VITALS: BP 114/72; PULSE 94; RESP 18; TEMP 97.4; O2SAT 99
[2017-01-21] MEDS: LORazepam 0.5 MG TAB PO PRN ×3 (03:01→21:05)
[2017-01-21 04:00] VITALS: BP 147/91; PULSE 91; RESP 18; TEMP 97.4; O2SAT 97
[2017-01-21 08:00] VITALS: BP 172/80; PULSE 93; RESP 18; TEMP 99.1; O2SAT 98
[2017-01-21] MEDS: HYDROCHLOROTHIAZIDE 12.5 MG CAP PO SCH (08:43)
[2017-01-21] MEDS: LISINOPRIL 10 MG TAB PO SCH (08:43)
[2017-01-21] MEDS: CARVEDILOL 6.25 MG TAB PO SCH ×2 (08:43→21:06)
[2017-01-21] MEDS: amLODIPine BESYLATE 5 MG TAB PO SCH (08:43)
[2017-01-21] MEDS: SODIUM CHLORIDE 0.9% FLUSH 10 ML FLUSH IV FLUSH SCH ×2 (08:46→21:06)
[2017-01-21] MEDS ORDERED: PHARMACY ORDERED LAB ONE (09:45)
--- NOTE | 2017-01-21 10:12 | HHI.HCPN ---
Reason for visit a. To assist with evaluation and management of symptoms including: pain, debility, decreased appetite, anxiety. b. To assist medical decision maker(s) with: better understanding of current medical conditions; weighing benefits/burdens of medical treatment options; making medical treatment decisions. . (Chloe Pardo) Subjective/Interval History Ms. Vo was admitted 01/17/17 for with sepsis/UTI. Patient seen and assessed in room 1416, also present patient's 3 daughters. Patient is lethargic today, responds to questions with short answers. Intermittent confusion interspersed with periods of lucidity. Afebrile. Leukocytosis trending downward, WBC of 15.7 today. Blood culture showing no growth in 4 days. Urine culture growing Proteus Mirabilis. Patient remains on IV antibiotics. Patient continues to report pain "all over". She is unable to rate or describe pain. Patient's family stating she continues to grimace and moan with movement , specifically left upper extremity. Family also reports continued anxiety. = Humerus x-ray showing decreased bone density. There is a concavity seen along the medial aspect of the left humeral head suggesting possible HillSachs deformity, impacted fracture. A CT scan would be helpful for further assessment. = Hip/pelvis x-ray showing decreased bone density. There is a fracture of the left superior as well as inferior pubic ramus identified. = Forearm x-ray showing decreased bone density with no obvious fractures. Patient has orders for Yoakum (5-325mg) 1 tablet PO every 4 hours PRN for pain- patient has received 1 dose in the past 24 hours. Lorazepam 0.5 mg PO is available BID for anxiety and is ready to be used 2 times daily. Patient remains weak, currently bedbound. Nutritional intake is poor, taking only bites per family. BMI: 19.0 . Family/friend interactions Met with patient's 3 daughters to discuss patient's current clinical condition and 6 month decline in functional status. Family has decided to forego further diagnostic testing and/or aggressive interventions, requesting hospice for symptom management and end-of-life care. . (Chloe Pardo) Advance Directives Living Will: Completed, but not made available Health Care Surrogate: Completed, but not made available Durable Power of Sandal Parts Assembler: Completed, but not made available (Chloe Pardo) Advance Directive Specifics Date completed: Unknown. Patient reports she has completed these documents. . Health Care Surrogate(s): Patient tells me that her youngest daughter (Carmen) who lives in [place] is her health care surrogate and power of real estate attorney. Daughter, Pamela, confirms this. We do not have documentation confirming this. . Documented care wishes: No written documentation of care wishes. . Significant change in goals: Family has requested hospice for symptom management and end-of-life care. . (Chloe Pardo) Objective Vital Signs Date Time Temp Pulse Resp B/P Pulse Ox O2 Delivery O2 Flow Rate FiO2 01/21/17 08:00 99.1 93 18 172/80 98 01/21/17 04:00 97.4 91 18 147/91 97 01/21/17 00:00 97.4 94 18 114/72 99 01/20/17 20:00 97.4 87 18 116/58 94 01/20/17 16:00 98.1 89 18 117/71 98 01/20/17 12:00 98.1 78 18 120/75 98 Intake & Output 01/21/17 01/21/17 07:00 19:00 Intake Total 460 ml Balance 460 ml Intake Oral 460 ml # Voids 3 # Bowel Movements 1 . Physical Exam CONSTITUTIONAL/GENERAL: This is a frail elderly female in no acute distress TUBES/LINES/DRAINS: PIV x 2 SKIN: No jaundice, rashes, or lesions. Ecchymoses on upper/lower extremities and hips bilaterally. No wounds seen anteriorly. Skin temperature appropriate. Not diaphoretic. HEAD: Atraumatic. Normocephalic. EYES: Pupils equal and round and reactive. Extraocular motions intact. No scleral icterus. No injection or drainage. Fundi not examined. ENT: Hearing grossly normal. Nose without bleeding or purulent drainage. NECK: Trachea midline. Supple, nontender. No palpable thyroid enlargement or nodularity. CARDIOVASCULAR: Irregularly irregular without murmurs, gallops, or rubs. No JVD. Peripheral pulses symmetric. RESPIRATORY/CHEST: Symmetric, unlabored respirations. Clear to auscultation. Breath sounds equal bilaterally. No wheezes, rales, or rhonchi. GASTROINTESTINAL: Abdomen soft, non-tender, nondistended. No hepato-splenomegaly , or palpable masses. No guarding. Bowel sounds present. GENITOURINARY: Without palpable bladder distension. MUSCULOSKELETAL: Extremities without clubbing, cyanosis, or edema. LYMPHATICS: No palpable cervical or supraclavicular adenopathy. NEUROLOGICAL: Awake, lethargic. Intermittently confused. Response to simple questions with brief answers. Follows some commands. PSYCHIATRIC: Patient seeing and talking to family members who are . Exhibiting no anxiety or agitation on exam. . (Chloe Pardo) Diagnostic Tests Laboratory Laboratory Tests Test 01/18/17 01/19/17 01/19/17 01/20/17 20:10 07:49 13:27 11:32 Sodium Level 136 MEQ/L 137 MEQ/L (136-145) (136-145) Potassium Level 3.8 MEQ/L 4.3 MEQ/L (3.5-5.1) (3.5-5.1) Chloride Level 102 MEQ/L 104 MEQ/L (98-107) (98-107) Carbon Dioxide Level 22.3 MEQ/L 18.9 MEQ/L (21.0-32.0) (21.0-32.0) Anion Gap 12 MEQ/L (5-15) 14 MEQ/L (5-15) Blood Urea Nitrogen 41 MG/DL (7-18) 34 MG/DL (7-18) Creatinine 1.08 MG/DL 0.99 MG/DL 0.96 MG/DL (0.50-1.00) (0.50-1.00) (0.50-1.00) Estimat Glomerular Filtration 49 ML/MIN (>89) 54 ML/MIN (>89) 56 ML/MIN (>89) Rate Random Glucose 63 MG/DL 78 MG/DL (74-106) (74-106) Calcium Level 8.3 MG/DL 8.7 MG/DL (8.5-10.1) (8.5-10.1) Random Vancomycin Level 7.5 COMMENT White Blood Count 17.0 TH/MM3 15.7 TH/MM3 (4.0-11.0) (4.0-11.0) Red Blood Count 3.95 MIL/MM3 3.86 MIL/MM3 (4.00-5.30) (4.00-5.30) Hemoglobin 12.0 GM/DL 11.8 GM/DL (11.6-15.3) (11.6-15.3) Hematocrit 35.9 % 34.8 % (35.0-46.0) (35.0-46.0) Mean Corpuscular Volume 90.9 FL 90.0 FL (80.0-100.0) (80.0-100.0) Mean Corpuscular Hemoglobin 30.3 PG 30.7 PG (27.0-34.0) (27.0-34.0) Mean Corpuscular Hemoglobin 33.3 % 34.1 % Concent (32.0-36.0) (32.0-36.0) Red Cell Distribution Width 13.7 % 13.8 % (11.6-17.2) (11.6-17.2) Platelet Count 213 TH/MM3 208 TH/MM3 (150-450) (150-450) Mean Platelet Volume 8.6 FL 8.9 FL (7.0-11.0) (7.0-11.0) Neutrophils (%) (Auto) 86.1 % 85.6 % (16.0-70.0) (16.0-70.0) Lymphocytes (%) (Auto) 1.0 % 8.3 % (9.0-44.0) (9.0-44.0) Monocytes (%) (Auto) 12.7 % 5.9 % (0.0-8.0) (0.0-8.0) Eosinophils (%) (Auto) 0.1 % (0.0-4.0) 0.0 % (0.0-4.0) Basophils (%) (Auto) 0.1 % (0.0-2.0) 0.2 % (0.0-2.0) Neutrophils # (Auto) 14.6 TH/MM3 13.4 TH/MM3 (1.8-7.7) (1.8-7.7) Lymphocytes # (Auto) 0.2 TH/MM3 1.3 TH/MM3 (1.0-4.8) (1.0-4.8) Monocytes # (Auto) 2.1 TH/MM3 0.9 TH/MM3 (0-0.9) (0-0.9) Eosinophils # (Auto) 0.0 TH/MM3 0.0 TH/MM3 (0-0.4) (0-0.4) Basophils # (Auto) 0.0 TH/MM3 0.0 TH/MM3 (0-0.2) (0-0.2) CBC Comment DIFF FINAL DIFF FINAL Differential Comment Total Bilirubin 1.0 MG/DL (0.2-1.0) Aspartate Amino Transf 42 U/L (15-37) (AST/SGOT) Alanine Aminotransferase 34 U/L (10-53) (ALT/SGPT) Alkaline Phosphatase 106 U/L (45-117) Total Protein 6.4 GM/DL (6.4-8.2) Albumin 2.9 GM/DL (3.4-5.0) . (Chloe Pardo) Result Diagram: 01/20/17 1132 01/19/17 1327 Imaging Last 72 hours Impressions Radius/Ulna X-Ray 01/20/17 0000 Signed Impressions: Service Date/Time: Friday, January 20, 2017 14:53 - CONCLUSION: Decreased bone density. No obvious fractures. Gary Fernandez MD Humerus X-Ray 01/20/17 0000 Signed Impressions: Service Date/Time: Friday, January 20, 2017 14:51 - CONCLUSION: Left proximal humerus deformity, age-indeterminate. Gary Fernandez MD Hip and Pelvis X-Ray 01/20/17 0000 Signed Impressions: Service Date/Time: Friday, January 20, 2017 14:51 - CONCLUSION: Left pubic rami fractures. Gary Fernandez MD . 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 Patient nutritional intake is minimal, eating only bites. BMI 19.3. . (2) Pain 0-10 Scale: Unable to quantify Comment: Patient states she has pain "all over" but was unable to rate or described pain. She has a history of chronic neck and back pain and follows a pain specialist outpatient. Currently has orders for PRN [place] every 4 hours PO that is being sparingly use. (3) Debility 0-10 Scale: Unable to quantify Comment: Patient has had an acute decline in the past week. She has gone from ambulating safely with a walker to being bedbound, unable to transition from supine position to sitting. Now completely dependent for all ADLs, incontinent of bowel and bladder. Physical therapy is following. (4) Anxiety 0-10 Scale: Unable to quantify Comment: Patient continues to have intermittent anxiety. Lorazepam 0.5 mg PO is available BID as needed for anxiety and is used regularly. . Pertinent Non-Medical Issues Psychosocial: Ms. Vo is noted. She has 3 adult childrenMichelle is an [place]; the liver is an [place]; this in [place]. Spiritual: Buddhism and spirituality have NOT been an important part of the patient's life. Her was Anabaptist and she "became Anabaptist" when her was being treated for a brain tumor. Legal: Patient previously stated that her youngest daughter (Carmen) who lives in [place] is her health care surrogate and power of real estate attorney. Daughter, Pamela , had confirmed this. We do not have documentation confirming this. The patient's 3 daughters are very close and worked together on decisions regarding the patient's medical care. Ethical issues impacting care: Capacity is questionable. Patient's anxiety, intermittent confusion and reasoning deficits are likely interfering with her ability to fully understand her illness and weighed the benefits/burdens of treatment options. Recommend her health care surrogatedaughter Carmen - be consulted. . Important Contacts Carmen Li (daughter; lives in [place]) ; [phone] Pamela Marisela (daughter; lives in [place]); [phone] Christina Phoenix (daughter, lives in [place]); [phone] . Prognosis Patient is an 81-year-old female who has experienced an acute decline in recent months. She was hospitalized in September, and again in January, with electrolyte imbalances, altered mental status and UTI. Patient has chronic pain secondary to a C2 fracture sustained in 03/2015 after a fall. Patient has a history of anorexia and bulimia that spans several decades, suspected bipolar disorder that was never treated and Alzheimer's dementia. She also has a history of hypertension, noncompliant with medications at times which puts the patient at increased risk for stroke and other complications. She is now having increased confusion, recurrent infections requiring hospitalization and multiple falls. She is taking only bites of food and is now bedbound. Patient has had a clear decline since her last hospitalization 4 months ago which will more than likely continue. It is reasonable to say the patient's expectancy is < 6 months. Patient is appropriate for hospice services if her medical treatment goals are comfort oriented - this appears to be the case after aching with patient's daughter. . Code Status: No Code Plan * NO CODE * Decision making: Capacity is questionable. Patient's anxiety, intermittent confusion and reasoning deficits are likely interfering with her ability to fully understand her illness and weighed the benefits/burdens of treatment options. Patient previously stated that her youngest daughter (Carmen) who lives in [place] is her health care surrogate and power of real estate attorney. We do not have documentation confirming this, but both sisters confirm this. The patient's 3 daughters are very close and worked together on decisions regarding the patient' s medical care. Recommend her health care surrogatedaughter Carmen - be consulted. * Goals: Family has decided to forego further diagnostic testing and/or aggressive interventions, requesting hospice for symptom management and end-of- life care. * Symptom management- anxiety: Patient continues to have intermittent anxiety. Lorazepam 0.5 mg PO is available BID as needed for anxiety and is used regularly. * Symptom managementpain: Patient states she has pain "all over" but was unable to rate or described pain. She has a history of chronic neck and back pain and follows a pain specialist outpatient. Currently has orders for PRN [place] every 4 hours PO that is being sparingly use. Palliative care will monitor PRN requirements and make recommendations as indicated. No recommendations at this time. Patient continues to have LUE and hip pain s/p falling last week. Orders placed for imaging of forearm, humerus and hip. * Symptom managementdecreased appetite: Patient has a history of anorexia and bulimia that spans several decades. The patient and family report an approximate weight loss of 10 pounds in the past few months. Patient nutritional intake is minimal, eating only bites. BMI 19.3. Patient has previously had PEG tube insertion and removal; family indicating they do not believe the patient would consent to artificial nutrition at this time in her life. * In the managementdebility: Patient has had an acute decline in the past week. She has gone from ambulating safely with a walker to being bedbound, unable to transition from supine position to sitting. Now completely dependent for all ADLs, incontinent of bowel and bladder. Physical therapy is following. If goals remain aggressive patient will need to be placed at a [facility] facility with rehabilitation upon discharge. * Discussed with Dr. Almeida. * Hospice consult placed - spoke with Evangelina at hospice intake. Dr. Almeida supports family's decision to transition to comfort focus care. * Palliative care will continue to follow this patient throughout her hospitalization to establish trust, assist with symptom management and clarification of medical treatment goals . (Chloe Pardo) Attestation To help prompt me to consider important information that might be impacting today's encounter and assessment, information from prior notes written by myself or my colleagues may have been "brought forward" into today's note. My signature on this note, however, is an attestation that I personally performed the exam, history, and/or decision-making noted today, and, unless otherwise indicated, the interactions with patient, family, and staff as well as the review of records all occurred today. I also attest that the listed assessment and stated plan reflect my best clinical judgment today based on the combination of historical information, prior notes, and today's exam/ interactions. When time spent is documented, it refers only to time spent today by the signer, or if indicated, combined time spent today by collaborating physician/nurse practitioner. . (Chloe Pardo) Collaborating MD Comments . Chart reviewed. Cased discussed with palliative care BAND TACKER. Above BAND TACKER note reviewed and I concur. . (Jason Springer MD) Chloe Pardo Jan 21, 2017 10:12 Jason Springer MD March 08, 2017 15:10 Attestation To help prompt me to consider important information that might be impacting today's encounter and assessment, information from prior notes written by myself or my colleagues may have been "brought forward" into today's note. My signature on this note, however, is an attestation that I personally performed the exam, history, and/or decision-making noted today, and, unless otherwise indicated, the interactions with patient, family, and staff as well as the review of records all occurred today. I also attest that the listed assessment and stated plan reflect my best clinical judgment today based on the combination of historical information, prior notes, and today's exam/ interactions. When time spent is documented, it refers only to time spent today by the signer, or if indicated, combined time spent today by collaborating physician/nurse practitioner. . Chloe Pardo Jan 21, 2017 10:12
[2017-01-21 12:00] VITALS: BP 109/54; PULSE 79; RESP 18; TEMP 97.5; O2SAT 98
[2017-01-21] MEDS: ACETAMINOPHEN/HYDROcodone 325 MG/5 MG TAB PO PRN ×3 (12:03→23:31)
[2017-01-21] MEDS: cefTRIAXone INJ 1,000 MG in SODIUM CHLORIDE 0.9% INJ 100 ML IV SCH (12:03)
[2017-01-21 16:00] VITALS: BP 117/77; PULSE 103; RESP 16; TEMP 96.9; O2SAT 98
--- NOTE | 2017-01-21 16:55 | HHI.PR ---
Subjective Remarks This is an 81-year-old female with Hypertension, chronic low back pain, Atrial Fibrillation, brought to ER on 01/17/17 lethargic, weak and sleepy, given IV fluids, improving blood pressure, admitted with Diagnosis of Sepsis, likely secondary to UTI, Encephalopathy, electrolyte derangement, MELVIN, yesterday slightly confused, Hypertensive, WBC trending up, seen in the room in the presence of logistic specialist, the family will decide about the possibility for Hospice placement, the patient is very frail, has UTI sensitive to all antibiotics evaluated, also complaint of Pelvic Hip pain and arm pain status post fall. 01/21: Seen in her bedroom in the presence of her Grand-Daughter and discussed in meeting with her Daughters and other relatives, they will decide about Hospice placement, she will continue present antibiotics by now and follow probable will go home off antibiotics. X rays seen and discussed with her relatives and Palliative care Objective Vital Signs Date Time Temp Pulse Resp B/P Pulse Ox O2 Delivery O2 Flow Rate FiO2 01/21/17 12:00 97.5 79 18 109/54 98 01/21/17 08:00 99.1 93 18 172/80 98 01/21/17 04:00 97.4 91 18 147/91 97 01/21/17 00:00 97.4 94 18 114/72 99 01/20/17 20:00 97.4 87 18 116/58 94 I/O 01/20/17 01/20/17 01/20/17 01/21/17 01/21/17 01/21/17 07:00 15:00 23:00 07:00 15:00 23:00 Intake Total 120 ml 0 ml 360 ml 100 ml 100 ml Balance 120 ml 0 ml 360 ml 100 ml 100 ml Intake Oral 120 ml 0 ml 360 ml 100 ml IV Total 100 ml # Voids 2 3 1 2 # Bowel Movements 0 4 0 1 Result Diagram: 01/20/17 1132 01/19/17 1327 Imaging Last Impressions Radius/Ulna X-Ray 01/20/17 0000 Signed Impressions: Service Date/Time: Friday, January 20, 2017 14:53 - CONCLUSION: Decreased bone density. No obvious fractures. Gary Fernandez MD Humerus X-Ray 01/20/17 0000 Signed Impressions: Service Date/Time: Friday, January 20, 2017 14:51 - CONCLUSION: Left proximal humerus deformity, age-indeterminate. Gary Fernandez MD Hip and Pelvis X-Ray 01/20/17 0000 Signed Impressions: Service Date/Time: Friday, January 20, 2017 14:51 - CONCLUSION: Left pubic rami fractures. Gary Fernandez MD Chest X-Ray 01/17/17 1338 Signed Impressions: Service Date/Time: Tuesday, January 17, 2017 13:40 - CONCLUSION: Emphysematous changes of the lungs. No acute abnormality seen. Mayda Russell MD Head CT 01/17/17 0000 Signed Impressions: Service Date/Time: Tuesday, January 17, 2017 14:48 - CONCLUSION: 1. No acute findings. Chronic white matter ischemic changes. Paul Thompson MD Cervical Spine CT 01/17/17 0000 Signed Impressions: Service Date/Time: Tuesday, January 17, 2017 14:48 - CONCLUSION: 1. Chronic C2 fracture through dens without change in alignment or appearance compared with September 2016. No canal stenosis. Stable minimal degenerative anterolisthesis of C4 on C5. Stable facet arthropathy. Paul Thompson MD Procedures No procedures performed. Other Results Laboratory Tests Test 01/17/17 01/17/17 01/19/17 01/19/17 14:07 14:30 07:49 13:27 Lactic Acid Level 1.1 mmol/L Urine Color YELLOW Urine Turbidity HAZY Urine pH 5.5 Urine Specific [place] 1.013 Urine Protein 30 mg/dL Urine Glucose (UA) NEG mg/dL Urine Ketones NEG mg/dL Urine Occult Blood TRACE Urine Nitrite NEG Urine Bilirubin NEG Urine Urobilinogen LESS THAN 2.0 MG/DL Urine Leukocyte Esterase SMALL Urine RBC 4 /hpf Urine WBC 4 /hpf Urine WBC Clumps RARE Urine Squamous Epithelial <1 /hpf Cells Urine Bacteria RARE /hpf Urine Hyaline Casts 35 /lpf Urine Granular Casts 1 /lpf Urine White Blood Cell Casts 5 /lpf Urine Mucus FEW /lpf Microscopic Urinalysis Comment CATH-CULTURE IND Random Vancomycin Level 7.5 COMMENT Sodium Level 137 MEQ/L Potassium Level 4.3 MEQ/L Chloride Level 104 MEQ/L Carbon Dioxide Level 18.9 MEQ/L Anion Gap 14 MEQ/L Blood Urea Nitrogen 34 MG/DL Creatinine 0.96 MG/DL Estimat Glomerular Filtration 56 ML/MIN Rate Random Glucose 78 MG/DL Calcium Level 8.7 MG/DL Total Bilirubin 1.0 MG/DL Aspartate Amino Transf 42 U/L (AST/SGOT) Alanine Aminotransferase 34 U/L (ALT/SGPT) Alkaline Phosphatase 106 U/L Total Protein 6.4 GM/DL Albumin 2.9 GM/DL Test 01/20/17 11:32 White Blood Count 15.7 TH/MM3 Red Blood Count 3.86 MIL/MM3 Hemoglobin 11.8 GM/DL Hematocrit 34.8 % Mean Corpuscular Volume 90.0 FL Mean Corpuscular Hemoglobin 30.7 PG Mean Corpuscular Hemoglobin 34.1 % Concent Red Cell Distribution Width 13.8 % Platelet Count 208 TH/MM3 Mean Platelet Volume 8.9 FL Neutrophils (%) (Auto) 85.6 % Lymphocytes (%) (Auto) 8.3 % Monocytes (%) (Auto) 5.9 % Eosinophils (%) (Auto) 0.0 % Basophils (%) (Auto) 0.2 % Neutrophils # (Auto) 13.4 TH/MM3 Lymphocytes # (Auto) 1.3 TH/MM3 Monocytes # (Auto) 0.9 TH/MM3 Eosinophils # (Auto) 0.0 TH/MM3 Basophils # (Auto) 0.0 TH/MM3 CBC Comment DIFF FINAL Differential Comment Objective Remarks GENERAL: Frail lady, in no apparent distress. SKIN: No rashes, ecchymoses or lesions. Cool and dry. There is a skin tear in the left lower extremity covered by dressing which is C/D/I HEAD: Atraumatic. Normocephalic. No temporal or scalp tenderness. EYES: Pupils equal round and reactive. Extraocular motions intact. No scleral icterus. No injection or drainage. ENT: Nose without bleeding, purulent drainage or septal hematoma. Throat without erythema, tonsillar hypertrophy or exudate. Uvula midline. Airway patent. [place] collar in place. NECK: Trachea midline. No JVD or lymphadenopathy. Supple, nontender, no meningeal signs. [place] collar in place CARDIOVASCULAR: Irregularly irregular rhythm without murmurs, gallops, or rubs. RESPIRATORY: Clear to auscultation. Breath sounds equal bilaterally. No wheezes , rales, or rhonchi. GASTROINTESTINAL: Abdomen soft, non-tender, nondistended. No hepato-splenomegaly , or palpable masses. No guarding. MUSCULOSKELETAL: Extremities without clubbing, cyanosis, or edema. No joint tenderness, effusion, or edema noted. No calf tenderness. Negative Homans sign bilaterally. NEUROLOGICAL: Awake and alert. Cranial nerves II through XII intact. Motor and sensory grossly within normal limits. Five out of 5 muscle strength in all muscle groups. Normal speech. Medications and IVs Current Medications Medications (Trade) Dose Ordered Sig/Ally Route Start Time Stop Time Status Last Admin (NS Flush) 2 ml UNSCH PRN IV FLUSH 01/17/17 16:45 (NS Flush) 2 ml BID IV FLUSH 01/17/17 21:00 01/21/17 08:46 (Tylenol) 650 mg Q4H PRN PO 01/17/17 16:45 01/18/17 05:38 (Zofran Inj) 4 mg Q6H PRN IVP 01/17/17 16:45 (Lovenox Inj) 40 mg Q24H SQ 01/17/17 18:00 01/20/17 17:52 (Coreg) 6.25 mg BID PO 01/18/17 14:15 01/21/17 08:43 (Catapres-Tts 0.2 Mg Patch.7d) 1 patch Q7D T-DERMAL 01/18/17 15:00 01/18/17 16:06 Miscellaneous Information 1 Q7D T-DERMAL 01/25/17 15:00 ([place] 5-325 Mg) 1 tab Q4H PRN PO 01/18/17 14:30 01/21/17 12:03 (Ativan) 0.5 mg BID PRN PO 01/18/17 14:30 01/21/17 08:48 Amlodipine Besylate 5 mg 5 mg DAILY PO 01/19/17 10:00 01/21/17 08:43 (Rocephin Inj/NS Inj) 100 ml @ 200 mls/hr Q24H IV 01/19/17 11:00 01/21/17 12:03 (Vasotec Inj) 2.5 mg Q6H PRN IV PUSH 01/19/17 15:15 (Cardura) 2 mg HS PO 01/19/17 21:00 01/20/17 20:37 (Microzide) 12.5 mg DAILY PO 01/20/17 09:00 01/21/17 08:43 (Prinivil) 10 mg DAILY PO 01/19/17 16:00 01/21/17 08:43 A/P Assessment and Plan 1. Sepsis likely secondary to UTI, following blood culture and WBC count. on Rocephin 2. Acute Metabolic Encephalopathy due to sepsis resolved 3. UTI on Rocephin, Proteus Mirabilis sensitive to all antibiotics evaluated. 4. Hypertension controlled. 5. electrolyte derangement replaced. 6. C2 Cervical Fracture chronic continue [place] Collar 7. MELVIN Improved. 8. Chronic Pain syndrome continue Percocet 9. Anxiety disorder, stable on home Clonazepam. 10. Hip pain bilateral and arm pain asked for X rays. Left proximal Humerus deformity but did not found Fracture Left Pubic rami fracture. conservative management. Discussed with Patient, Palliative Care Miss Morales and Grand-Daughter in the room. and her Daughter and other relatives in the room asked for Hospice care will await for final recommendations By Palliative Care for discharge. DVT prophylaxis with Lovenox Discharge Planning later on today or in am tomorrow to Home with hospice Luis Acuña MD Jan 21, 2017 16:55
[2017-01-21] MEDS: ENOXAPARIN SODIUM 40 MG/0.4 ML SYRINGE SQ SCH (18:00)
[2017-01-21 20:00] VITALS: BP 152/72; PULSE 83; RESP 18; TEMP 97.3; O2SAT 97
[2017-01-21] MEDS: DOXAZOSIN MESYLATE 2 MG TAB PO SCH (21:06)
[2017-01-22] VITALS: BP 126/64; PULSE 91; RESP 20; TEMP 97.3; O2SAT 97
[2017-01-22 04:00] VITALS: BP 140/74; PULSE 86; RESP 18; TEMP 97.2; O2SAT 97
[2017-01-22] MEDS: ACETAMINOPHEN/HYDROcodone 325 MG/5 MG TAB PO PRN ×2 (05:22→11:41)
[2017-01-22 08:00] VITALS: BP 132/69; PULSE 93; RESP 18; TEMP 98.1; O2SAT 97
[2017-01-22] MEDS: CARVEDILOL 6.25 MG TAB PO SCH (08:02)
[2017-01-22] MEDS: LISINOPRIL 10 MG TAB PO SCH (08:02)
[2017-01-22] MEDS: LORazepam 0.5 MG TAB PO PRN (08:02)
[2017-01-22] MEDS: amLODIPine BESYLATE 5 MG TAB PO SCH (08:02)
[2017-01-22] MEDS: HYDROCHLOROTHIAZIDE 12.5 MG CAP PO SCH (08:03)
[2017-01-22] MEDS: SODIUM CHLORIDE 0.9% FLUSH 10 ML FLUSH IV FLUSH SCH (08:03)
[2017-01-22] MEDS: cefTRIAXone INJ 1,000 MG in SODIUM CHLORIDE 0.9% INJ 100 ML IV SCH (11:02)
--- NOTE | 2017-01-22 12:11 | HHI.PR ---
Subjective Remarks This is an 81-year-old female with Hypertension, chronic low back pain, Atrial Fibrillation, brought to ER on 01/17/17 lethargic, weak and sleepy, given IV fluids, improving blood pressure, admitted with Diagnosis of Sepsis, likely secondary to UTI, Encephalopathy, electrolyte derangement, MELVIN, yesterday slightly confused, Hypertensive, WBC trending up, seen in the room in the presence of child and family services specialist, the family will decide about the possibility for Hospice placement, the patient is very frail, has UTI sensitive to all antibiotics evaluated, also complaint of Pelvic Hip pain and arm pain status post fall. 01/21: Seen in her bedroom in the presence of her Grand-Daughter and discussed in meeting with her Daughters and other relatives, they will decide about Hospice placement, she will continue present antibiotics by now and follow probable will go home off antibiotics. X rays seen and discussed with her relatives and Palliative care : Patient in her bedroom awaiting for transfer to Inpatient Hospice she is frail and somnolent, no Nausea, vomit or diarrhea, no complaint. discussed with nurse Miss Huang and her Daughter and Grand-Daughter in the room Objective Vital Signs Date Time Temp Pulse Resp B/P Pulse Ox O2 Delivery O2 Flow Rate FiO2 01/22/17 08:00 98.1 93 18 132/69 97 01/22/17 04:00 97.2 86 18 140/74 97 01/22/17 00:00 97.3 91 20 126/64 97 01/21/17 20:00 97.3 83 18 152/72 97 01/21/17 16:00 96.9 103 16 117/77 98 I/O 01/21/17 01/21/17 01/21/17 01/22/17 01/22/17 01/22/17 07:00 15:00 23:00 07:00 15:00 23:00 Intake Total 100 ml 580 ml 120 ml 100 ml Output Total 50 ml Balance 100 ml 530 ml 120 ml 100 ml Intake Oral 100 ml 480 ml 120 ml 100 ml IV Total 100 ml Output Urine Total 50 ml # Voids 2 1 3 # Bowel Movements 1 1 0 0 Result Diagram: 01/20/17 1132 01/19/17 1327 Imaging Last Impressions Radius/Ulna X-Ray 01/20/17 0000 Signed Impressions: Service Date/Time: Friday, January 20, 2017 14:53 - CONCLUSION: Decreased bone density. No obvious fractures. Gary Fernandez MD Humerus X-Ray 01/20/17 0000 Signed Impressions: Service Date/Time: Friday, January 20, 2017 14:51 - CONCLUSION: Left proximal humerus deformity, age-indeterminate. Gary Fernandez MD Hip and Pelvis X-Ray 01/20/17 0000 Signed Impressions: Service Date/Time: Friday, January 20, 2017 14:51 - CONCLUSION: Left pubic rami fractures. Gary Fernandez MD Chest X-Ray 01/17/17 1338 Signed Impressions: Service Date/Time: Tuesday, January 17, 2017 13:40 - CONCLUSION: Emphysematous changes of the lungs. No acute abnormality seen. Mayda Russell MD Head CT 01/17/17 0000 Signed Impressions: Service Date/Time: Tuesday, January 17, 2017 14:48 - CONCLUSION: 1. No acute findings. Chronic white matter ischemic changes. Paul Thompson MD Cervical Spine CT 01/17/17 0000 Signed Impressions: Service Date/Time: Tuesday, January 17, 2017 14:48 - CONCLUSION: 1. Chronic C2 fracture through dens without change in alignment or appearance compared with September 2016. No canal stenosis. Stable minimal degenerative anterolisthesis of C4 on C5. Stable facet arthropathy. Paul Thompson MD Procedures No procedures performed. Other Results Laboratory Tests Test 01/17/17 01/19/17 01/19/17 01/20/17 14:30 07:49 13:27 11:32 Urine Color YELLOW Urine Turbidity HAZY Urine pH 5.5 Urine Specific [place] 1.013 Urine Protein 30 mg/dL Urine Glucose (UA) NEG mg/dL Urine Ketones NEG mg/dL Urine Occult Blood TRACE Urine Nitrite NEG Urine Bilirubin NEG Urine Urobilinogen LESS THAN 2.0 MG/DL Urine Leukocyte Esterase SMALL Urine RBC 4 /hpf Urine WBC 4 /hpf Urine WBC Clumps RARE Urine Squamous Epithelial <1 /hpf Cells Urine Bacteria RARE /hpf Urine Hyaline Casts 35 /lpf Urine Granular Casts 1 /lpf Urine White Blood Cell Casts 5 /lpf Urine Mucus FEW /lpf Microscopic Urinalysis Comment CATH-CULTURE IND Random Vancomycin Level 7.5 COMMENT Sodium Level 137 MEQ/L Potassium Level 4.3 MEQ/L Chloride Level 104 MEQ/L Carbon Dioxide Level 18.9 MEQ/L Anion Gap 14 MEQ/L Blood Urea Nitrogen 34 MG/DL Creatinine 0.96 MG/DL Estimat Glomerular Filtration 56 ML/MIN Rate Random Glucose 78 MG/DL Calcium Level 8.7 MG/DL Total Bilirubin 1.0 MG/DL Aspartate Amino Transf 42 U/L (AST/SGOT) Alanine Aminotransferase 34 U/L (ALT/SGPT) Alkaline Phosphatase 106 U/L Total Protein 6.4 GM/DL Albumin 2.9 GM/DL White Blood Count 15.7 TH/MM3 Red Blood Count 3.86 MIL/MM3 Hemoglobin 11.8 GM/DL Hematocrit 34.8 % Mean Corpuscular Volume 90.0 FL Mean Corpuscular Hemoglobin 30.7 PG Mean Corpuscular Hemoglobin 34.1 % Concent Red Cell Distribution Width 13.8 % Platelet Count 208 TH/MM3 Mean Platelet Volume 8.9 FL Neutrophils (%) (Auto) 85.6 % Lymphocytes (%) (Auto) 8.3 % Monocytes (%) (Auto) 5.9 % Eosinophils (%) (Auto) 0.0 % Basophils (%) (Auto) 0.2 % Neutrophils # (Auto) 13.4 TH/MM3 Lymphocytes # (Auto) 1.3 TH/MM3 Monocytes # (Auto) 0.9 TH/MM3 Eosinophils # (Auto) 0.0 TH/MM3 Basophils # (Auto) 0.0 TH/MM3 CBC Comment DIFF FINAL Differential Comment Objective Remarks GENERAL: Frail lady, in no apparent distress. SKIN: No rashes, ecchymoses or lesions. Cool and dry. There is a skin tear in the left lower extremity covered by dressing which is C/D/I HEAD: Atraumatic. Normocephalic. No temporal or scalp tenderness. EYES: Pupils equal round and reactive. Extraocular motions intact. No scleral icterus. No injection or drainage. ENT: Nose without bleeding, purulent drainage or septal hematoma. Throat without erythema, tonsillar hypertrophy or exudate. Uvula midline. Airway patent. [place] collar in place. NECK: Trachea midline. No JVD or lymphadenopathy. Supple, nontender, no meningeal signs. [place] collar in place CARDIOVASCULAR: Irregularly irregular rhythm without murmurs, gallops, or rubs. RESPIRATORY: Clear to auscultation. Breath sounds equal bilaterally. No wheezes , rales, or rhonchi. GASTROINTESTINAL: Abdomen soft, non-tender, nondistended. No hepato-splenomegaly , or palpable masses. No guarding. MUSCULOSKELETAL: Extremities without clubbing, cyanosis, or edema. No joint tenderness, effusion, or edema noted. No calf tenderness. Negative Homans sign bilaterally. NEUROLOGICAL: Awake and alert. Cranial nerves II through XII intact. Motor and sensory grossly within normal limits. Five out of 5 muscle strength in all muscle groups. Normal speech. Medications and IVs Current Medications Medications (Trade) Dose Ordered Sig/Ally Route Start Time Stop Time Status Last Admin (NS Flush) 2 ml UNSCH PRN IV FLUSH 01/17/17 16:45 (NS Flush) 2 ml BID IV FLUSH 01/17/17 21:00 01/22/17 08:03 (Tylenol) 650 mg Q4H PRN PO 01/17/17 16:45 01/18/17 05:38 (Zofran Inj) 4 mg Q6H PRN IVP 01/17/17 16:45 (Lovenox Inj) 40 mg Q24H SQ 01/17/17 18:00 01/20/17 17:52 (Coreg) 6.25 mg BID PO 01/18/17 14:15 01/22/17 08:02 (Catapres-Tts 0.2 Mg Patch.7d) 1 patch Q7D T-DERMAL 01/18/17 15:00 01/18/17 16:06 Miscellaneous Information 1 Q7D T-DERMAL 01/25/17 15:00 ([place] 5-325 Mg) 1 tab Q4H PRN PO 01/18/17 14:30 01/22/17 11:41 (Ativan) 0.5 mg BID PRN PO 01/18/17 14:30 01/22/17 08:02 Amlodipine Besylate 5 mg 5 mg DAILY PO 01/19/17 10:00 01/22/17 08:02 (Rocephin Inj/NS Inj) 100 ml @ 200 mls/hr Q24H IV 01/19/17 11:00 01/22/17 11:02 (Vasotec Inj) 2.5 mg Q6H PRN IV PUSH 01/19/17 15:15 (Cardura) 2 mg HS PO 01/19/17 21:00 01/21/17 21:06 (Microzide) 12.5 mg DAILY PO 01/20/17 09:00 01/22/17 08:03 (Prinivil) 10 mg DAILY PO 01/19/17 16:00 01/22/17 08:02 A/P Assessment and Plan 1. Sepsis Improved. likely secondary to UTI, Cultured Proteus Mirabilis sensitive to all antibiotics, blood culture negative. 2. Acute Metabolic Encephalopathy due to sepsis resolved 3. UTI on Rocephin, Proteus Mirabilis sensitive to all antibiotics evaluated. 4. Hypertension controlled. 5. electrolyte derangement replaced. 6. C2 Cervical Fracture chronic continue [place] Collar 7. MELVIN Improved. 8. Chronic Pain syndrome continue Percocet 9. Anxiety disorder, stable on home Clonazepam. 10. Hip pain bilateral and arm pain asked for X rays. Left proximal Humerus deformity but did not found Fracture Left Pubic rami fracture. conservative management. Discussed with Patient, her Daughter and Grand-Daughter in the room. also with Hospice nurse as per relatives elected to go to Inpatient Hospice will be transferred later today. DVT prophylaxis with Lovenox Discharge Planning Discharge to Inpatient Hospice later today. Luis Acuña MD Jan 22, 2017 12:11
--- NOTE | 2017-01-22 12:13 | HHI.DS ---
Discharge Summary Admission Date Jan 17, 2017 at 15:52 Discharge Date: Jan 22, 2017 Admitting Diagnosis sepsis, UTI (1) Sepsis ICD Code: A41.9 Diagnosis: Principal (2) Encephalopathy ICD Code: G93.40 Diagnosis: Principal (3) UTI (urinary tract infection) ICD Code: N39.0 Diagnosis: Principal (4) HTN (hypertension) ICD Code: I10 Diagnosis: Secondary (5) Hyponatremia ICD Code: E87.1 Diagnosis: Secondary (6) C2 cervical fracture ICD Code: S12.100A Diagnosis: Secondary (7) MELVIN (acute kidney injury) ICD Code: N17.9 Diagnosis: Principal (8) Chronic pain ICD Code: G89.29 Diagnosis: Secondary (9) Anxiety ICD Code: F41.9 Diagnosis: Secondary Procedures none Brief History - From Admission This is an 81-year-old female with past medical history as stated below who presented to [facility] brought in by EMS services. The patient is lethargic and unable to provide history at this time. The patient's daughter is at bedside. She states that the patient started the week approximately 3 days ago. Today when she went to see her she was very weak and sleepy. That is when she decided to call EMS services. The patient has been seen in emergency department, she with IV fluids. As per ED physician report the patient was profoundly hypotensive with systolic blood pressure in the 60s. IV fluid was administered with improvement of blood pressure. There are no reports of fevers or chills, occasional cough, as per the patient's daughter, the patient had been complaining of palpitations, nausea and dry heaving. There are no reports of diarrhea. CBC/BMP: 01/20/17 1132 01/19/17 1327 Significant Findings Laboratory Tests Test 01/19/17 01/20/17 13:27 11:32 White Blood Count 17.0 TH/MM3 15.7 TH/MM3 (4.0-11.0) (4.0-11.0) Red Blood Count 3.95 MIL/MM3 3.86 MIL/MM3 (4.00-5.30) (4.00-5.30) Neutrophils (%) (Auto) 86.1 % 85.6 % (16.0-70.0) (16.0-70.0) Lymphocytes (%) (Auto) 1.0 % 8.3 % (9.0-44.0) (9.0-44.0) Monocytes (%) (Auto) 12.7 % (0.0-8.0) Neutrophils # (Auto) 14.6 TH/MM3 13.4 TH/MM3 (1.8-7.7) (1.8-7.7) Lymphocytes # (Auto) 0.2 TH/MM3 (1.0-4.8) Monocytes # (Auto) 2.1 TH/MM3 (0-0.9) Carbon Dioxide Level 18.9 MEQ/L (21.0-32.0) Blood Urea Nitrogen 34 MG/DL (7-18) Estimat Glomerular Filtration 56 ML/MIN (>89) Rate Aspartate Amino Transf 42 U/L (15-37) (AST/SGOT) Albumin 2.9 GM/DL (3.4-5.0) Hematocrit 34.8 % (35.0-46.0) Imaging Last Impressions Radius/Ulna X-Ray 01/20/17 0000 Signed Impressions: Service Date/Time: Friday, January 20, 2017 14:53 - CONCLUSION: Decreased bone density. No obvious fractures. Gary Fernandez MD Humerus X-Ray 01/20/17 0000 Signed Impressions: Service Date/Time: Friday, January 20, 2017 14:51 - CONCLUSION: Left proximal humerus deformity, age-indeterminate. Gary Fernandez MD Hip and Pelvis X-Ray 01/20/17 0000 Signed Impressions: Service Date/Time: Friday, January 20, 2017 14:51 - CONCLUSION: Left pubic rami fractures. Gary Fernandez MD Chest X-Ray 01/17/17 1338 Signed Impressions: Service Date/Time: Tuesday, January 17, 2017 13:40 - CONCLUSION: Emphysematous changes of the lungs. No acute abnormality seen. Mayda Russell MD Head CT 01/17/17 0000 Signed Impressions: Service Date/Time: Tuesday, January 17, 2017 14:48 - CONCLUSION: 1. No acute findings. Chronic white matter ischemic changes. Paul Thompson MD Cervical Spine CT 01/17/17 0000 Signed Impressions: Service Date/Time: Tuesday, January 17, 2017 14:48 - CONCLUSION: 1. Chronic C2 fracture through dens without change in alignment or appearance compared with September 2016. No canal stenosis. Stable minimal degenerative anterolisthesis of C4 on C5. Stable facet arthropathy. Paul Thompson MD PE at Discharge GENERAL: Frail lady, in no apparent distress. SKIN: No rashes, ecchymoses or lesions. Cool and dry. There is a skin tear in the left lower extremity covered by dressing which is C/D/I HEAD: Atraumatic. Normocephalic. No temporal or scalp tenderness. EYES: Pupils equal round and reactive. Extraocular motions intact. No scleral icterus. No injection or drainage. ENT: Nose without bleeding, purulent drainage or septal hematoma. Throat without erythema, tonsillar hypertrophy or exudate. Uvula midline. Airway patent. [place] collar in place. NECK: Trachea midline. No JVD or lymphadenopathy. Supple, nontender, no meningeal signs. [place] collar in place CARDIOVASCULAR: Irregularly irregular rhythm without murmurs, gallops, or rubs. RESPIRATORY: Clear to auscultation. Breath sounds equal bilaterally. No wheezes , rales, or rhonchi. GASTROINTESTINAL: Abdomen soft, non-tender, nondistended. No hepato-splenomegaly , or palpable masses. No guarding. MUSCULOSKELETAL: Extremities without clubbing, cyanosis, or edema. No joint tenderness, effusion, or edema noted. No calf tenderness. Negative Homans sign bilaterally. NEUROLOGICAL: Awake and alert. Cranial nerves II through XII intact. Motor and sensory grossly within normal limits. Five out of 5 muscle strength in all muscle groups. Normal speech. Hospital Course This is an 81-year-old female with Hypertension, chronic low back pain, Atrial Fibrillation, brought to ER on 01/17/17 lethargic, weak and sleepy, given IV fluids, improving blood pressure, admitted with Diagnosis of Sepsis, likely secondary to UTI, Encephalopathy, electrolyte derangement, MELVIN, yesterday slightly confused, Hypertensive, WBC trending up, seen in the room in the presence of orthopedic cast specialist, the family will decide about the possibility for Hospice placement, the patient is very frail, has UTI sensitive to all antibiotics evaluated, also complaint of Pelvic Hip pain and arm pain status post fall. 01/21: Seen in her bedroom in the presence of her Grand-Daughter and discussed in meeting with her Daughters and other relatives, they will decide about Hospice placement, she will continue present antibiotics by now and follow probable will go home off antibiotics. X rays seen and discussed with her relatives and Palliative care : Patient in her bedroom awaiting for transfer to Inpatient Hospice she is frail and somnolent, no Nausea, vomit or diarrhea, no complaint. discussed with nurse Miss Huang and her Daughter and Grand-Daughter in the room Assessment and Plan 1. Sepsis Improved. likely secondary to UTI, Cultured Proteus Mirabilis sensitive to all antibiotics, blood culture negative. 2. Acute Metabolic Encephalopathy due to sepsis resolved 3. UTI on Rocephin, Proteus Mirabilis sensitive to all antibiotics evaluated. 4. Hypertension controlled. 5. electrolyte derangement replaced. 6. C2 Cervical Fracture chronic continue [place] Collar 7. MELVIN Improved. 8. Chronic Pain syndrome continue Percocet 9. Anxiety disorder, stable on home Clonazepam. 10. Hip pain bilateral and arm pain asked for X rays. Left proximal Humerus deformity but did not found Fracture Left Pubic rami fracture. conservative management. Discussed with Patient, her Daughter and Grand-Daughter in the room. also with Hospice nurse as per relatives elected to go to Inpatient Hospice will be transferred later today. DVT prophylaxis with Lovenox Discharge Planning Discharge to Inpatient Hospice later today. Pt Condition on Discharge: Deteriorating Discharge Disposition: Hospice/Med Facility Discharge Time: > 30 minutes Discharge Instructions DIET: Follow Instructions for: As Tolerated, No Restrictions Activities you can perform: Continue Bedrest Luis Acuña MD Jan 22, 2017 12:13
[2017-01-25] MEDS ORDERED: REMOVE OLD CATAPRES (CLONIDINE) PATCH T-DERMAL SCH (15:00)
== END 2017-01-22 12:30 | disposition hospice, inpatient (51) | DRG 871 ==
LOC: NEPC 13:28 → NEDA 15:52 → N04B 19:29
PROVIDERS: ADMIT Internal Medicine; ATTEND Internal Medicine
DX: A41.9 Sepsis, unspecified organism (principal); G93.41 Metabolic encephalopathy; N17.9 Acute kidney failure, unspecified; I48.2 Chronic atrial fibrillation; E86.0 Dehydration; S32.502A Unspecified fracture of left pubis, initial encounter for closed fracture; E87.1 Hypo-osmolality and hyponatremia; I10 Essential (primary) hypertension; F50.00 Anorexia nervosa, unspecified; N39.0 Urinary tract infection, site not specified; B96.4 Proteus (mirabilis) (morganii) as the cause of diseases classified elsewhere; Z68.1 Body mass index [BMI] 19.9 or less, adult; G89.4 Chronic pain syndrome; E87.6 Hypokalemia; F32.9 Major depressive disorder, single episode, unspecified; F41.9 Anxiety disorder, unspecified; M25.551 Pain in right hip; M79.603 Pain in arm, unspecified; Z91.81 History of falling; S12.100D Unspecified displaced fracture of second cervical vertebra, subsequent encounter for fracture with routine healing; F02.80 Dementia in other diseases classified elsewhere, unspecified severity, without behavioral disturbance, psychotic disturbance, mood disturbance, and anxiety; G30.9 Alzheimer's disease, unspecified; Z66 Do not resuscitate; Z51.5 Encounter for palliative care; I25.10 Atherosclerotic heart disease of native coronary artery without angina pectoris; Z86.73 Personal history of transient ischemic attack (TIA), and cerebral infarction without residual deficits; Z87.891 Personal history of nicotine dependence; Z74.01 Bed confinement status
CPT/HCPCS: 51702; 70450; 71010; 72125; 73060; 73090; 73502; 80048; 80053; 80202; 81001; 82565; 83605; 85025; 87040; 87077; 87086; 87186; 93005; J0696; J1650; J2543; J3370; J3480; J7030; J7050